=== PATIENT | female | born 1985 | race Caucasian/White ===

== ENCOUNTER 2018-07-31 10:30 | Emergency (ER) | payer OTHER ==
[~2018-07-31 10:30] MED LIST changes: -ACET-1966 PO; -ACET500T68 PO; -ADAL40PE4 SQ; -DICY20TA70 PO; -PRED20TA6 PO
--- NOTE | 2018-07-31 10:33 | ER Report ---
History and Physical Time Seen By MD: 10:32 HPI/ROS CHIEF COMPLAINT: Abdominal pain HISTORY OF PRESENT ILLNESS: Patient is a 32-year-old female with history of ulcerative colitis who is currently on Humira every other week. She follows with a pusher runner in [facility]. Patient recently moved from [place] back to [place] here in March. She presents today with complaint of severe lower quadrant abdominal pain this morning. Her last meal was reported at 9:30 this morning. She states she has anywhere between 5 and 10 small non-formed stools per day sometimes occasionally mixed with blood. She denies any mucus. She also reports bloating and gas. Patient was recently seen by Edwina Weinberg and had some blood work that was done due to the anemia. Blood drawn on 07/25/2018 shows a hemoglobin of 8.4; MCV of 64; a normal total iron binding capacity of 284 (250- 450); normal UIBC of 275 (131-425); a severely low iron level of 9 (27-159); a low iron saturation of 3 (15-55); and a low ferritin level of 13 (15-150); suggesting an iron deficiency anemia. Patient has a history of iron infusions but not has not received them recently. Ports feeling weak and tired over the last few weeks to months. However it is the abdominal pain that brought her into the emergency department today. He shouldn't denies ever having any abdominal surgery. But she did have a infected [place] Patient denies any fevers or chills. She denies any chest pain or cough. REVIEW OF SYSTEMS: Constitutional: No fever, no chills. Generalized weakness Eyes: No discharge. ENT: No sore throat. Cardiovascular: No chest pain, no palpitations. Respiratory: No cough, no shortness of breath. Gastrointestinal: Lower abdominal pain, no nausea or vomiting, 5-10 loose formed stools daily Genitourinary: No hematuria. Musculoskeletal: No back pain. Skin: No rashes. Neurological: No headache. Allergies: Coded Allergies: No Known Drug Allergies (Unverified , 07/31/18) Home Meds Reported Medications Acetaminophen (TYLENOL EXTRA STRENGTH) 500 Mg Tablet, 500 MG PO Q6H PRN for PAIN, TAB 07/31/18 Acetaminophen (TYLENOL) 325 Mg Tablet, 325 MG PO, TAB 07/31/18 Dicyclomine Hcl (DICYCLOMINE HCL) 20 Mg Tablet, 20 MG PO TID PRN for PAIN 07/31/18 Adalimumab (HUMIRA) 40 Mg/0.8 Ml Pen.ij.kit, 40 MG SQ Q2WK 07/31/18 Prednisone (PREDNISONE) 20 Mg Tablet, 40 MG PO QDAY, TAB 07/31/18 Discontinued Reported Medications Hydrocodone Bit/Acetaminophen (Hydrocodone-Apap 5-325 Tab) 1 Each Tablet, 1 EACH PO, 0 Refills 02/15/11 Vits W-Ca,Fe,Fa(<1MG) () 1 Each Tablet, 1 EACH PO DAILY, 0 Refills 02/15/11 Prednisone (Prednisone) 20 Mg Tab, 10 MG PO QDAY, 0 Refills 02/15/11 Past Medical/Surgical History History of ulcerative colitis Hx Smoking: No Hx Substance Use Disorder: No Hx Alcohol Use: No Constitutional Vital Sign - Last 24 Hours 07/31/18 07/31/18 07/31/18 07/31/18 10:35 10:37 11:00 11:30 Temp 98.4 Pulse 103 100 102 Resp 11 B/P (MAP) 124/86 (99) 124/86 118/78 (91) 115/73 (87) Pulse Ox 94 89 85 O2 Delivery Room Air Room Air Room Air 07/31/18 07/31/18 07/31/18 07/31/18 12:00 12:05 12:50 13:05 Pulse 101 102 104 B/P (MAP) 116/74 (88) 113/76 (88) Pulse Ox 96 90 85 O2 Delivery Room Air 07/31/18 07/31/18 07/31/18 07/31/18 13:10 13:27 13:40 13:45 Pulse ??? 98 B/P (MAP) 110/75 (87) 115/80 (92) Pulse Ox 92 O2 Delivery Room Air 07/31/18 07/31/18 07/31/18 07/31/18 14:10 14:35 14:40 15:10 Pulse 103 104 107 106 Pulse Ox 88 87 90 O2 Delivery Room Air Room Air Room Air 07/31/18 15:13 Temp 98.9 B/P (MAP) 116/84 (95) Physical Exam General/Constitutional: Patient is awake, alert, somewhat pale and thin. No acute respiratory distress Head: Normocephalic and atraumatic. Eyes: Conjunctival clear without pallor, Pupils are equal and reactive to light. Extraocular muscles are intact and symmetrical. Sclera are clear and anicteric. Ears:External canals are clear. Tympanic membranes are clear with normal landmarks and light reflex. Nares: No rhinorrhea or bleeding. Turbinates are pink and moist. Oropharyngeal: Mucous membranes are moist. There is no pharyngeal erythema or exudate. There are no palatal petechiae. Uvula is midline and symmetrical. Neck: Supple, no adenopathy. Cardiovascular: Heart is regular rate and rhythm without audible murmurs, rubs or gallops. Pulmonary: Lungs are clear to auscultation bilaterally. There are no wheezes, rales, or rhonchi. Chest rise is symmetrical Abdomen: Soft, nontender, no guarding or peritoneal signs. Extremities: No gross deformities, No peripheral cyanosis. Able to move all 4 extremities. Neuro: Alert and oriented X3, Skin: No rashes, skin is warm dry and well perfused. Medical Decision Making Data Points Result Diagram: 07/31/18 1123 07/31/18 1123 Laboratory Hematology Test 07/31/18 10:39 07/31/18 11:23 07/31/18 11:47 07/31/18 15:24 Lab Scanned Report Emergency Blood Red Blood Count 4.21 M/uL (4.17-5.56) Mean Corpuscular Volume 62.3 fL (80.0-96.0) Mean Corpuscular Hemoglobin 18.4 pg (26.0-33.0) Mean Corpuscular Hemoglobin Concent 29.6 g/dL (32.0-36.0) Red Cell Distribution Width 17.7 % (11.5-14.5) Mean Platelet Volume 6.0 fL (7.2-11.1) Neutrophils (%) (Auto) 67.9 % (39.4-72.5) Lymphocytes (%) (Auto) 19.5 % (17.6-49.6) Monocytes (%) (Auto) 10.6 % (4.1-12.4) Eosinophils (%) (Auto) 1.4 % (0.4-6.7) Basophils (%) (Auto) 0.6 % (0.3-1.4) Nucleated RBC Relative Count (auto) 0.0 /100WBC Neutrophils # (Auto) 5.4 K/uL (2.0-7.4) Lymphocytes # (Auto) 1.6 K/uL (1.3-3.6) Monocytes # (Auto) 0.8 K/uL (0.3-1.0) Eosinophils # (Auto) 0.1 K/uL (0.0-0.5) Basophils # (Auto) 0.0 K/uL (0.0-0.1) Nucleated RBC Absolute Count (auto) 0.00 K/uL Peripheral Blood Smear Yes Y/N Absolute Reticulocyte Count 0.0527 10^6/uL Percent Reticulocyte Count 1.12 % Corrected Reticulocyte % 0.78 % Haptoglobin 430 mg/dL (30-200) Prothrombin Time 13.4 seconds (12.0-14.4) Prothromb Time International Ratio 1.02 Activated Partial Thromboplast Time 32 seconds (23-35) Sodium Level 138 mmol/L (137-145) Potassium Level 3.3 mmol/L (3.5-5.0) Chloride Level 101 mmol/L (98-107) Carbon Dioxide Level 30 mmol/L (22-31) Blood Urea Nitrogen 13 mg/dl (7-18) Creatinine 0.60 mg/dl (0.52-1.04) Glomerular Filtration Rate Calc > 60.0 Random Glucose 104 mg/dl (75-110) Calcium Level 8.7 mg/dl (8.4-10.2) Total Bilirubin 0.2 mg/dl (0.2-1.3) Aspartate Amino Transf (AST/SGOT) 16 U/L (0-35) Alanine Aminotransferase (ALT/SGPT) 17 U/L (0-56) Alkaline Phosphatase 121 U/L (0-126) Lactate Dehydrogenase 268 U/L (0-590) Total Protein 7.8 g/dl (6.3-8.2) Albumin 3.3 g/dl (3.5-5.0) Lipase 52 U/L (23-300) Vitamin B12 Level 647 pg/mL (180-914) Folate 13.7 ng/mL (>=5.9) Human Chorionic Gonadotropin, Qual Negative (NEGATIVE) Helicobacter pylori IgG Antibody Negative (NEGATIVE) Stool Occult Blood (IFOB) Positive (NEGATIVE) Urine Color Yellow Urine Clarity Clear Urine pH 5.0 pH (4.8-9.5) Urine Specific Bryan S3 Urine Protein Negative mg/dL (NEGATIVE) Urine Glucose (UA) Negative mg/dL (NEGATIVE) Urine Ketones Negative mg/dL (NEGATIVE) Urine Blood Moderate (NEGATIVE) Urine Nitrite Negative (NEGATIVE) Urine Bilirubin Negative (NEGATIVE) Urine Urobilinogen Negative mg/dL (0.2-1.9) Urine Leukocyte Esterase Negative (NEGATIVE) Urine RBC 9 /HPF (0-2/HPF) Urine WBC 1 /HPF (0-5/HPF) Urine Squamous Epithelial Cells Many /LPF (</=FEW) Urine Bacteria Negative /HPF (NONE-FEW) Urine Mucus Few /HPF (NONE-FEW) Chemistry Test 07/31/18 10:39 07/31/18 11:23 07/31/18 11:47 07/31/18 15:24 Lab Scanned Report Emergency Blood White Blood Count 8.0 k/uL (4.5-11.0) Red Blood Count 4.21 M/uL (4.17-5.56) Hemoglobin 7.8 g/dL (12.0-16.0) Hematocrit 29.4 % (34.0-47.0) Mean Corpuscular Volume 62.3 fL (80.0-96.0) Mean Corpuscular Hemoglobin 18.4 pg (26.0-33.0) Mean Corpuscular Hemoglobin Concent 29.6 g/dL (32.0-36.0) Red Cell Distribution Width 17.7 % (11.5-14.5) Platelet Count 695 K/uL (150-450) Mean Platelet Volume 6.0 fL (7.2-11.1) Neutrophils (%) (Auto) 67.9 % (39.4-72.5) Lymphocytes (%) (Auto) 19.5 % (17.6-49.6) Monocytes (%) (Auto) 10.6 % (4.1-12.4) Eosinophils (%) (Auto) 1.4 % (0.4-6.7) Basophils (%) (Auto) 0.6 % (0.3-1.4) Nucleated RBC Relative Count (auto) 0.0 /100WBC Neutrophils # (Auto) 5.4 K/uL (2.0-7.4) Lymphocytes # (Auto) 1.6 K/uL (1.3-3.6) Monocytes # (Auto) 0.8 K/uL (0.3-1.0) Eosinophils # (Auto) 0.1 K/uL (0.0-0.5) Basophils # (Auto) 0.0 K/uL (0.0-0.1) Nucleated RBC Absolute Count (auto) 0.00 K/uL Peripheral Blood Smear Yes Y/N Absolute Reticulocyte Count 0.0527 10^6/uL Percent Reticulocyte Count 1.12 % Corrected Reticulocyte % 0.78 % Haptoglobin 430 mg/dL (30-200) Prothrombin Time 13.4 seconds (12.0-14.4) Prothromb Time International Ratio 1.02 Activated Partial Thromboplast Time 32 seconds (23-35) Glomerular Filtration Rate Calc > 60.0 Calcium Level 8.7 mg/dl (8.4-10.2) Total Bilirubin 0.2 mg/dl (0.2-1.3) Aspartate Amino Transf (AST/SGOT) 16 U/L (0-35) Alanine Aminotransferase (ALT/SGPT) 17 U/L (0-56) Alkaline Phosphatase 121 U/L (0-126) Lactate Dehydrogenase 268 U/L (0-590) Total Protein 7.8 g/dl (6.3-8.2) Albumin 3.3 g/dl (3.5-5.0) Lipase 52 U/L (23-300) Vitamin B12 Level 647 pg/mL (180-914) Folate 13.7 ng/mL (>=5.9) Human Chorionic Gonadotropin, Qual Negative (NEGATIVE) Helicobacter pylori IgG Antibody Negative (NEGATIVE) Stool Occult Blood (IFOB) Positive (NEGATIVE) Urine Color Yellow Urine Clarity Clear Urine pH 5.0 pH (4.8-9.5) Urine Specific Bryan S3 Urine Protein Negative mg/dL (NEGATIVE) Urine Glucose (UA) Negative mg/dL (NEGATIVE) Urine Ketones Negative mg/dL (NEGATIVE) Urine Blood Moderate (NEGATIVE) Urine Nitrite Negative (NEGATIVE) Urine Bilirubin Negative (NEGATIVE) Urine Urobilinogen Negative mg/dL (0.2-1.9) Urine Leukocyte Esterase Negative (NEGATIVE) Urine RBC 9 /HPF (0-2/HPF) Urine WBC 1 /HPF (0-5/HPF) Urine Squamous Epithelial Cells Many /LPF (</=FEW) Urine Bacteria Negative /HPF (NONE-FEW) Urine Mucus Few /HPF (NONE-FEW) Coagulation Test 07/31/18 11:23 Prothrombin Time 13.4 seconds Prothromb Time International Ratio 1.02 Activated Partial Thromboplast Time 32 seconds Urinalysis Test 07/31/18 15:24 Urine Color Yellow Urine Clarity Clear Urine pH 5.0 pH (4.8-9.5) Urine Specific Bryan S3 Urine Protein Negative mg/dL (NEGATIVE) Urine Glucose (UA) Negative mg/dL (NEGATIVE) Urine Ketones Negative mg/dL (NEGATIVE) Urine Blood Moderate (NEGATIVE) Urine Nitrite Negative (NEGATIVE) Urine Bilirubin Negative (NEGATIVE) Urine Urobilinogen Negative mg/dL (0.2-1.9) Urine Leukocyte Esterase Negative (NEGATIVE) Urine RBC 9 /HPF (0-2/HPF) Urine WBC 1 /HPF (0-5/HPF) Urine Squamous Epithelial Cells Many /LPF (</=FEW) Urine Bacteria Negative /HPF (NONE-FEW) Urine Mucus Few /HPF (NONE-FEW) ED Course/Re-evaluation ED Course 07/31/2018 11:23:20 am patient with acute abdominal pain and ulcerative colitis plan at this time will be abdominal workup including CT scan of the abdomen and pelvis. We will give IV fentanyl along with Zofran for pain. We'll also perform additional anemia workup. 07/31/2018 1:05:41 pm and increased pain given 50 mics of IV fentanyl this time. Hemoglobin returns at 7.8. Had discussion with regard to transfusion as patient is symptomatic patient is agreeable at this time. We'll have patient sig n consent forms given a unit of blood. Mother did discuss possibility of an iron transfusion. I did explain that by getting the blood we supersede the issue of iron deficiency anemia immediately as it takes time for blood cells to be built up from iron.. Further explained that we would try to arrange outpatient iron infusions through her primary care provider. 07/31/2018 2:09:04 pm patient with pancolitis I CT scan but also evidence of DVT with moderate clot in the left common internal iliac arteries small amount of clot in the left external iliac artery. I did discuss the case with the on-c all hospitalist Dr. Garcia. He felt that given the clot burden that she would wire a higher level of care. I did discuss this with the patient they would prefer being transferred to [facility] they're able to take the patient. 07/31/2018 2:32:51 pm spoke with the GI attending ; and the hospitalist Dr Ellis: History, physical exam ED course all pertinent lab and imaging studies were reviewed. They both agreed to accept the patient for transport at this time. Family is in agreement. Decision to Disposition Date: Jul 31, 2018 Decision to Disposition Time: 14:33 Depart Departure Latest Vital Signs Vital Signs Date Time Temp Pulse Resp B/P (MAP) Pulse Ox O2 Delivery O2 Flow Rate FiO2 07/31/18 15:13 98.9 116/84 (95) 07/31/18 15:10 106 90 Room Air 07/31/18 10:37 11 Impression: Primary Impression: Arterial thrombosis Additional Impressions: Ulcerative pancolitis IRON DEFICIENCY ANEMIA SECONDARY TO BLOOD LOSS (CHRONIC) Condition: Improved Disposition: XFER TO [facility] (to [facility]) Problem Qualifiers BENNY BUSTILLO MD Jul 31, 2018 10:33
[2018-07-31] MEDS ORDERED: ACET500T68 PO (10:48)
[2018-07-31] MEDS ORDERED: ADAL40PE4 SQ (10:48)
[2018-07-31] MEDS ORDERED: DICY20TA70 PO (10:48)
[2018-07-31] MEDS ORDERED: ACET-1966 PO (10:48)
[2018-07-31] MEDS ORDERED: PRED20TA6 PO (10:48)
[2018-07-31] MEDS ORDERED: NS(*) 0.9% 1000 ML BAG 1,000 ML IV ONE (11:04)
[2018-07-31] MEDS ORDERED: ONDANSETRON 4 MG/2 ML VIAL IVP ONE (11:05)
[2018-07-31] MEDS ORDERED: fentaNYL CITR 100 MCG/2 ML AMP IVP ONE ×3 (11:05→13:55)
[2018-07-31] MEDS ORDERED: IOPAMIDOL 76% 75 ML INFUS BTL 75 ML ONE (11:24)
[2018-07-31 11:40] LABS: PLATELET COUNT, AUTOMATED 695 K/uL (150-450)
[2018-07-31 11:41] LABS: INR 1.02
[2018-07-31] MEDS ORDERED: NS(*) 0.9% 250 ML BAG 250 ML ONE (13:18)
--- NOTE | 2018-07-31 13:47 | RADIOLOGY IMAGING REPORT ---
FACILITY: [facility] [place] PATIENT NAME: Rika Esteban : 1985 MR: [id number] V: [id number] EXAM DATE: ORDERING PHYSICIAN: BENNY BUSTILLO TECHNOLOGIST: Location: [facility] Patient: Rika Esteban : 1985 Visit/Account:[id number] Date of Sevice: 07/31/2018 ADDENDUM #1 Findings discussed by telephone with Dr. BENNY BUSTILLO on 07/31/2018 1:47 PM. Per discussion, the patient had perineal surgery this summer which involved resection of perianal fis tulas and the areas of linear enhancement in the perianal/ischiorectal fat could therefore represent postoperative scarring. There is a typographical error related to voice recognition software in the first line of the conclus ion. The first line should read "Moderate, acute long segment colitis of the distal transverse, desc ending and sigmoid colon and rectum." Report Dictated By: Kimo Salgado at 07/31/2018 1:47 PM Report E-Signed By: Kimo Salgado at 07/31/2018 1:49 PM ORIGINAL REPORT ABDOMEN/PELVIS WITH CONTRAST COMPARISON: None. HISTORY: hx u/c; ab pain. TECHNIQUE: Axial CT abdomen and pelvis with intravenous contrast. Coronal and sagittal reformats. One of the following dose optimization techniques was utilized in the performance of this exam: aut omated exposure control; adjustment of the mA and/or kV according to patient size; or use of iterativ e reconstruction technique. Specific details can be referenced in the facility's radiology CT exam o perational policy. CONTRAST: 75 mL of IV Isovue-[id number]. FINDINGS: LUNG BASES: Unremarkable. LIVER: Unremarkable. BILIARY: Contracted gallbladder which could be related to recent meal. There is no intra or extrahepatic bile duct dilatation. SPLEEN: Normal. PANCREAS: Unremarkable. No significant mass, ductal dilatation or focal atrophy. No evidence of ac essie pancreatitis. ADRENALS: Unremarkable. KIDNEYS: Symmetric enhancement. No hydronephrosis or appreciable stones. No evidence of pyelonephr itis. GI/MESENTERY: There is long segment, continuous moderate wall thickening of the left colon, from dis jesus transverse colon to rectum. The entire transverse colon and left colon have a relatively tubular , ahaustral appearance which is typical of ulcerative colitis. The most significant wall thickening is in the rectum and there is mild perirectal fat stranding. Mesenteric hyperemic changes are noted in the transverse and descending colon mesentery. There is no ascending colon wall thickening. Ther e is no pneumatosis intestinalis, appreciable mass or obstruction. There are somewhat linear tracts of abnormal enhancement in the ischiorectal and perianal fat extendi ng posteriorly bilaterally, which could represent bilateral perianal sinus tracts, series 2 image 129 . No clear communication with the skin to suggest these are fistulous. There is mild adjacent fat s tranding . Each measures about 4 cm AP length. The stomach is unremarkable. Borderline dilated loop of small bowel in right lower quadrant/ileum, w ithout wall thickening or other. This could be incidental. The rest of the small bowel is unremarka ble and there is no clear evidence for obstruction. Appendix is not identified. VASCULAR: No significant atherosclerotic disease or arterial stenosis. Filling defects consistent with moderate volume clot in the left common iliac, internal and external iliac veins. Some of the c lot extends into left internal iliac vein branches. The mesenteric arteries and veins are patent. N o other venous thrombus identified. Portal and hepatic veins are widely patent. LYMPH NODES: Unremarkable. No significantly enlarged lymph nodes. BLADDER: Unremarkable. No visible focal wall thickening, appreciable lesion, or calculus. PELVIC ORGANS: IUD in the uterus, grossly within its expected location within the limitations of ass essment by CT. Normal appearance of the ovaries. PRAVEEN ES: Unremarkable.No acute-appearing fracture or suspicious osseous lesion. OTHER: Negative. IMPRESSION:1. Moderate of acute lung segment colitis of the distal transverse, descending and sigmoi d colon and rectum. These findings are most consistent with active ulcerative colitis given the hist ory. No evidence of perforation or intraperitoneal abscess. 2. Abnormal linear ischiorectal and perianal enhancement which could represent perianal sinus tracts extending into the ischiorectal fat. 3. Moderate amount of clot in the left common and internal iliac arteries, small amount of clot in t he left external iliac artery. Differential considerations include May Thurner syndrome, reactive th rombophlebitis, or hypercoagulable state. 4. Uterine IUD. Report Dictated By: Kimo Salgado at 07/31/2018 1:30 PM Report E-Signed By: Kimo Salgado at 07/31/2018 1:43 PM [id number]
[2018-07-31] MEDS ORDERED: LORazepam 2 MG/ML VIAL IVP ONE (14:55)
[2018-07-31 15:13] VITALS: BP 116/84
== END 2018-07-31 16:01 | disposition short-term general hospital (02) ==
LOC: ER 10:39
DX: I74.9 Embolism and thrombosis of unspecified artery (principal); K51.00 Ulcerative (chronic) pancolitis without complications; D50.0 Iron deficiency anemia secondary to blood loss (chronic)
CPT/HCPCS: 36415; 74177; 81001; 82274; 82607; 82746; 83010; 83615; 83690; 83874; 84703; 85025; 85045; 85610; 85730; 86677; 86850; 86900; 86901; 86920; 96361; 96374; 96375; 96376; 99285; J2060; J2405; J3010; J7030; J7050; P9016; Q9967; 82040; 82247; 82310; 82374; 82435; 82565; 82947; 84075; 84132; 84155; 84295; 84450; 84460; 84520

== ENCOUNTER → 2018-07-31 | Outpatient (CLI) | payer OTHER ==
[~2018-07-31] MED LIST: ACET-1966 PO; ACET500T68 PO; ADAL40PE4 SQ; CLO1 PO; DICY20TA70 PO; HYDR1TAB PO; IBU600 PO; KET10 PO; LOM PO; MES400 PO; NORG1TAB6 PO; PAN40 PO; PRE10 PO; PRE20 PO; PRE5 PO; PRED20TA6 PO; PREN-67 PO; PREN-85 PO; PRO25 PO
== END ==
LOC: AMB 15:41
PROVIDERS: ATTEND Nurse Practitioner
DX: I82.429 Acute embolism and thrombosis of unspecified iliac vein (principal); K51.90 Ulcerative colitis, unspecified, without complications
CPT/HCPCS: A0425; A0426

== ENCOUNTER 2018-11-06 14:45 | Observation (INO) | payer BC, OTHER ==
[2018-11-06] VITALS (8 sets, daily range): BP systolic 94–110; BP diastolic 55–73
[~2018-11-06] VITALS: Ht 162.6 cm; Wt 53.5 kg
[~2018-11-06 14:45] MED LIST changes: +ACET-1966 PO; +ACET500T68 PO; +ADAL40PE4 SQ; +DICY20TA70 PO; +PRED20TA6 PO
[2018-11-06] MEDS ORDERED: NS(*) 0.9% 1000 ML BAG 1,000 ML IV ONE ×2 (15:05→17:20)
--- NOTE | 2018-11-06 15:07 | ER Report ---
History and Physical Time Seen By MD: 14:55 HPI/ROS CHIEF COMPLAINT:. Perianal Abscess HISTORY OF PRESENT ILLNESS: 32-year-old female patient presents to emergency room with complaint of a perianal abscess. Patient states that she has had this in the past, she had have surgery for it in March when she was in [place]. She states that this been going on for the past 2 weeks. She states that it seems to fluctuate in size. She states that today the pain has gotten significantly worse. She states that she's not able to lay on her back because of the pain. She states that she has not been able to wear her normal underpants, stating that she's been wearing boxers. She states that she has not had any fevers, however yesterday she did feel warm and her children admitted that she felt warm. Patient states that she has not taken any medication for this. REVIEW OF SYSTEMS: Respiratory: No cough, no dyspnea. Cardiovascular: No chest pain, no palpitations. Gastrointestinal: No vomiting, no abdominal pain. Musculoskeletal: No back pain. 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 Patient has surgical history of a left anterior cruciate ligament repair, renal abscess drainage. Patient has a family medical history of breast cancer. Reviewed Nurses Notes: Yes Hx Smoking: No Hx Substance Use Disorder: No Hx Alcohol Use: No Constitutional Vital Sign - Last 24 Hours 11/06/18 11/06/18 11/06/18 14:48 16:45 17:30 Temp 98.7 Pulse 112 92 Resp 16 B/P (MAP) 111/70 102/67 (79) 107/76 (86) Pulse Ox 98 O2 Delivery Room Air Physical Exam General Appearance: The patient is alert, has no immediate need for airway protection and no current signs of toxicity. Respiratory: Chest is non tender, lungs are clear to auscultation. Cardiac: regular rate and rhythm Gastrointestinal: Abdomen is soft and non tender, no masses, bowel sounds no rmal. Musculoskeletal: Neck: Neck is supple and non tender. Extremities have full range of motion and are non tender. Skin: No rashes or lesions. Patient does have swelling, erythema to the left b uttock, no areas of fluctuance, however patient is very tender to palpation. DIFFERENTIAL DIAGNOSIS: After history and physical exam differential diagnosis was considered for abscess, cellulitis, fistula. Medical Decision Making Data Points Result Diagram: 11/06/18 1520 11/06/18 1520 Laboratory Hematology Test 11/06/18 15:20 Red Blood Count 4.22 M/uL (4.17-5.56) Mean Corpuscular Volume 64.7 fL (80.0-96.0) Mean Corpuscular Hemoglobin 18.9 pg (26.0-33.0) Mean Corpuscular Hemoglobin Concent 29.3 g/dL (32.0-36.0) Red Cell Distribution Width 17.7 % (11.5-14.5) Mean Platelet Volume 6.4 fL (7.2-11.1) Neutrophils (%) (Auto) % (39.4-72.5) Lymphocytes (%) (Auto) % (17.6-49.6) Monocytes (%) (Auto) % (4.1-12.4) Eosinophils (%) (Auto) % (0.4-6.7) Basophils (%) (Auto) % (0.3-1.4) Nucleated RBC Relative Count (auto) /100WBC Neutrophils # (Auto) K/uL (2.0-7.4) Lymphocytes # (Auto) K/uL (1.3-3.6) Monocytes # (Auto) K/uL (0.3-1.0) Eosinophils # (Auto) K/uL (0.0-0.5) Basophils # (Auto) K/uL (0.0-0.1) Nucleated RBC Absolute Count (auto) K/uL Neutrophils % (Manual) 81 % (39.4-72.5) Band Neutrophils % 2 % Lymphocytes % (Manual) 12 % (17.6-49.6) Monocytes % (Manual) 5 % (4.1-12.4) Eosinophils % (Manual) 0 % (0.4-6.7) Basophils % (Manual) 0 % (0.3-1.4) Platelet Estimate High Hypochromasia 3+ Poikilocytosis 1+ Anisocytosis 1+ Microcytosis 3+ Spherocytes 1+ Target Cells 1+ Tear Drop Cells 1+ Ovalocytes 1+ Sodium Level 134 mmol/L (137-145) Potassium Level 3.6 mmol/L (3.5-5.0) Chloride Level 102 mmol/L (98-107) Carbon Dioxide Level 25 mmol/L (22-31) Blood Urea Nitrogen 10 mg/dl (7-18) Creatinine 1.00 mg/dl (0.52-1.04) Glomerular Filtration Rate Calc > 60.0 Random Glucose 112 mg/dl (75-110) Calcium Level 8.4 mg/dl (8.4-10.2) Total Bilirubin 0.3 mg/dl (0.2-1.3) Aspartate Amino Transf (AST/SGOT) 13 U/L (0-35) Alanine Aminotransferase (ALT/SGPT) 13 U/L (0-56) Alkaline Phosphatase 105 U/L (0-126) Total Protein 7.4 g/dl (6.3-8.2) Albumin 3.6 g/dl (3.5-5.0) Human Chorionic Gonadotropin, Qual Negative (NEGATIVE) Chemistry Test 11/06/18 15:20 White Blood Count 14.2 k/uL (4.5-11.0) Red Blood Count 4.22 M/uL (4.17-5.56) Hemoglobin 8.0 g/dL (12.0-16.0) Hematocrit 27.3 % (34.0-47.0) Mean Corpuscular Volume 64.7 fL (80.0-96.0) Mean Corpuscular Hemoglobin 18.9 pg (26.0-33.0) Mean Corpuscular Hemoglobin Concent 29.3 g/dL (32.0-36.0) Red Cell Distribution Width 17.7 % (11.5-14.5) Platelet Count 853 K/uL (150-450) Mean Platelet Volume 6.4 fL (7.2-11.1) Neutrophils (%) (Auto) % (39.4-72.5) Lymphocytes (%) (Auto) % (17.6-49.6) Monocytes (%) (Auto) % (4.1-12.4) Eosinophils (%) (Auto) % (0.4-6.7) Basophils (%) (Auto) % (0.3-1.4) Nucleated RBC Relative Count (auto) /100WBC Neutrophils # (Auto) K/uL (2.0-7.4) Lymphocytes # (Auto) K/uL (1.3-3.6) Monocytes # (Auto) K/uL (0.3-1.0) Eosinophils # (Auto) K/uL (0.0-0.5) Basophils # (Auto) K/uL (0.0-0.1) Nucleated RBC Absolute Count (auto) K/uL Neutrophils % (Manual) 81 % (39.4-72.5) Band Neutrophils % 2 % Lymphocytes % (Manual) 12 % (17.6-49.6) Monocytes % (Manual) 5 % (4.1-12.4) Eosinophils % (Manual) 0 % (0.4-6.7) Basophils % (Manual) 0 % (0.3-1.4) Platelet Estimate High Hypochromasia 3+ Poikilocytosis 1+ Anisocytosis 1+ Microcytosis 3+ Spherocytes 1+ Target Cells 1+ Tear Drop Cells 1+ Ovalocytes 1+ Glomerular Filtration Rate Calc > 60.0 Calcium Level 8.4 mg/dl (8.4-10.2) Total Bilirubin 0.3 mg/dl (0.2-1.3) Aspartate Amino Transf (AST/SGOT) 13 U/L (0-35) Alanine Aminotransferase (ALT/SGPT) 13 U/L (0-56) Alkaline Phosphatase 105 U/L (0-126) Total Protein 7.4 g/dl (6.3-8.2) Albumin 3.6 g/dl (3.5-5.0) Human Chorionic Gonadotropin, Qual Negative (NEGATIVE) EKG/Imaging Imaging CT PELVIS W/CON HISTORY: Swelling and erythema at the left buttock. Ulcerative colitis. ADDITIONAL HISTORY: None. TECHNIQUE: Axial CT images were obtained through the pelvis with intravenous contrast. One of the following dose optimization techniques was utilized in the performance of this exam: automated exposure control; adjustment of the mA and/or kv according to patient size; or use of iterative reconstruction te chnique. Specific details can be referenced in the facility's radiology CT exam operational policy. CONTRAST: 85 mL of Isovue-370 COMPARISON: CT abdomen/pelvis with contrast 07/31/2018. FINDINGS: Pelvic genitourinary: IUD noted. Bowel/peritoneum/mesentery: Chronic thickening of the descending/sigmoid colon and rectum consistent with ulcerative colitis. There are 2 new left perianal fluid collection extending along the left gluteal fold consistent with abscess with the more cephalad component measuring 2.5 x 1.3 x 1.9 cm and the more inferior collection measuring 3.9 x 1.8 x 2.7 cm and contains several foci of gas. There are foci of gas extending from the more proximal fluid collection toward the anal canal. Moderate stranding of the adjacent fat Vessels: Interval stenting of the left common iliac vein with resolution of prior thrombus. Trace amount residual thrombus within left internal iliac venous branches although markedly improved. Lymph nodes: Several nonenlarged perirectal lymph nodes. Bones/body wall: See above Other findings: None significant IMPRESSION: 1. Chronic thickening of the descending/sigmoid colon and rectum consistent with ulcerative colitis. There are 2 new left perianal fluid collections which likely connect measuring up to 3.9 cm. Foci of gas extend towards the anal canal, concerning for fistula. 2. Interval stenting of the left common iliac vein with resolution of prior thrombus. Prior thrombus within the left internal iliac venous system has markedly improved. Report Dictated By: Dionisio Noble MD at 11/06/2018 4:22 PM Report E-Signed By: Dionisio Noble MD at 11/06/2018 4:31 PM ED Course/Re-evaluation ED Course Patient was admitted to exam room, history and physical were obtained. Differential diagnoses were considered. On examination lungs are clear, heart is regular, abdomen is soft and nontender. Evaluation of her rectum shows that the left buttock is very erythematous, tender to touch. To truly evaluate the depth of the abscess I opted to do a CT scan of the pelvis. A CBC, CMP were obtained. Patient did have a white count of 14,000 with a left shift, 82% neutrophils. CMP was unremarkable. CT scan did show a large perianal abscess with possible fistula to the rectum with air noted in the abscess. I discussed the findings with Dr. Toscano, general surgeon. He felt the patient likely needed to have surgery to open up and drained the abscess. He asked that patient be admitted and then he would take care of her this evening. Patient was kept nothing by mouth at that time. I discussed this with the patient who verbalized understanding and agreement with plan. Decision to Disposition Date: Nov 06, 2018 Decision to Disposition Time: 16:45 Depart Departure Latest Vital Signs Vital Signs Date Time Temp Pulse Resp B/P (MAP) Pulse Ox O2 Delivery O2 Flow Rate FiO2 11/06/18 17:30 107/76 (86) 11/06/18 16:45 92 11/06/18 14:48 98.7 16 98 Room Air Impression: Primary Impression: Perirectal abscess Condition: Condition Unchanged Disposition: Admitted from ER Referrals: LINDA [facility] SUPERVISOR-BC, ONC (PCP) MAXINE PENN Nov 06, 2018 15:07
[2018-11-06] MEDS ORDERED: MORPHINE 4 MG/ML SDV IVP ONE (15:40)
[2018-11-06] MEDS ORDERED: IOPAMIDOL 61% 100 ML INFUS BTL 100 ML ONE (15:41)
[2018-11-06 15:54] LABS: PLATELET COUNT, AUTOMATED 853 K/uL (150-450)
--- NOTE | 2018-11-06 16:38 | RADIOLOGY IMAGING REPORT ---
FACILITY: [facility] PATIENT NAME: Rika Esteban : 1985 MR: [id number] V: [id number] EXAM DATE: ORDERING PHYSICIAN: MAXINE PENN TECHNOLOGIST: Location: [facility] [place] Patient: Rika Esteban : 1985 Visit/Account:[id number] Date of Sevice: 11/06/2018 CT PELVIS W/CON HISTORY: Swelling and erythema at the left buttock. Ulcerative colitis. ADDITIONAL HISTORY: None. TECHNIQUE: Axial CT images were obtained through the pelvis with intravenous contrast. One of the fol lowing dose optimization techniques was utilized in the performance of this exam: automated exposure control; adjustment of the mA and/or kv according to patient size; or use of iterative reconstruction technique. Specific details can be referenced in the facility's radiology CT exam operational policy . CONTRAST: 85 mL of Isovue-370 COMPARISON: CT abdomen/pelvis with contrast 07/31/2018. FINDINGS: Pelvic genitourinary: IUD noted. Bowel/peritoneum/mesentery: Chronic thickening of the descending/sigmoid colon and rectum consistent with ulcerative colitis. There are 2 new left perianal fluid collection extending along the left gl uteal fold consistent with abscess with the more cephalad component measuring 2.5 x 1.3 x 1.9 cm and the more inferior collection measuring 3.9 x 1.8 x 2.7 cm and contains several foci of gas. There ar e foci of gas extending from the more proximal fluid collection toward the anal canal. Moderate stra nding of the adjacent fat Vessels: Interval stenting of the left common iliac vein with resolution of prior thrombus. Trace a mount residual thrombus within left internal iliac venous branches although markedly improved. Lymph nodes: Several nonenlarged perirectal lymph nodes. Bones/body wall: See above Other findings: None significant IMPRESSION: 1. Chronic thickening of the descending/sigmoid colon and rectum consistent with ulcerative colitis. There are 2 new left perianal fluid collections which likely connect measuring up to 3.9 cm. Foci of gas extend towards the anal canal, concerning for fistula. 2. Interval stenting of the left common iliac vein with resolution of prior thrombus. Prior thrombu s within the left internal iliac venous system has markedly improved. Report Dictated By: Dionisio Noble MD at 11/06/2018 4:22 PM Report E-Signed By: Dionisio Noble MD at 11/06/2018 4:31 PM WSN:HARSHAL-MONIQUE
[2018-11-06] MEDS ORDERED: LORazepam 2 MG/ML VIAL IVP ONE (16:40)
[2018-11-06] MEDS ORDERED: PIPERACILLIN/TAZO* 4.5 GM VIAL 4.5 GM in NS(*) 0.9% 100 ML ADDVANT BAG 100 ML IVPB ONE (17:20)
[2018-11-06] MEDS ORDERED: FAMOTIDINE 20 MG/50 ML PREMIX IVPB ONE (18:10)
[2018-11-06] MEDS ORDERED: NORMOSOL R SOLN(*) 1000 ML BAG 1,000 ML IV PRN (18:10)
[2018-11-06] MEDS ORDERED: MIDAZOLAM 2 MG/2 ML VIAL IVP PRN (18:10)
--- NOTE | 2018-11-06 18:30 | Gen Surgery History & Physical ---
History of Present Illness Chief Complaint Perianal pain History of Present Illness 32-year-old female with ulcerative colitis diagnosed 9 years ago presents with pain around her perianal region. She's also been having fevers and chills. No d rainage. She is on Humira for ulcerative colitis. She confirms that she has been evaluated and routinely sees a conference services director in the reaffirm that her diagnosis is ulcerative colitis and not Crohn's disease. She did have a complex perirectal abscess drained in [facility] 7 months ago. It seemed to heal without problems but then 2-3 weeks ago she started experiencing increasing pain. She has had no other perianal or rectal procedures prior to last summer other than colonoscopy. She denies any fecal incontinence. 2-1/2 months ago she did experience a left iliac arterial thrombosis treated with stenting and is currently on both Eliquis and Plavix. History Problems: (1) Ulcerative pancolitis Status: Chronic (2) Arterial thrombosis Status: Chronic Home Meds Reported Medications Acetaminophen (TYLENOL EXTRA STRENGTH) 500 Mg Tablet, 500 MG PO Q6H PRN for PAIN, TAB 07/31/18 Acetaminophen (TYLENOL) 325 Mg Tablet, 325 MG PO, TAB 07/31/18 Dicyclomine Hcl (DICYCLOMINE HCL) 20 Mg Tablet, 20 MG PO TID PRN for PAIN 07/31/18 Adalimumab (HUMIRA) 40 Mg/0.8 Ml Pen.ij.kit, 40 MG SQ Q2WK 07/31/18 Prednisone (PREDNISONE) 20 Mg Tablet, 40 MG PO QDAY, TAB 07/31/18 Allergies: Coded Allergies: No Known Drug Allergies (Unverified , 07/31/18) Review of Systems All Systems Reviewed/Normal: Yes, Except as Noted Constitutional: Fever, Chills Exam General Appearance: Alert, Awake, No Acute Distress, Afebrile Neuro: No Gross deficits Eyes: PERRLA GI: Abd Soft and Non-Tender, Other (I have reviewed the CT scan and can see the large perirectal abscess. I did not perform a digital rectal exam as I will be performing a digital rectal and anal exam under anesthesia.) Extremities: Warm, Perfused Psych: Alert & Oriented X3, Appropriate Mood & Affect Medical Decision Making Data Points Result Diagram: 11/06/18 1520 11/06/18 1520 Assessment and Plan Problems: (1) Perirectal abscess Status: Acute Assessment & Plan: 11/06/18: We'll admit the patient and start IV antibiotics and IV fluids. We'll proceed to surgery tonight for incision and drainage of the perirectal abscess. The CT raises the possibility of a fistulous tract to the anal canal and I will briefly look at this however she is on 2 blood thinners and so we'll try to minimize surgery to drain the infection and I have explained to her that there is a risk of developing a chronic fistula tract but we'll need to address this in the future if this develops when I can get her off of her anticoagulation before surgery if the fistula tract is not easily detected and addressed during today's surgery. I have explained the surgery to her in great detail as well as the alternatives, risks, and expected recovery. She should expect to be in the hospital at least overnight but possibly a couple of days until her vital signs normalize, she becomes afebrile, and her white blood cell count becomes normal. She seems to understand this discussion and her questions have been answered. She would like to proceed with this plan including incision and drainage of the perirectal abscess. (2) Ulcerative pancolitis Status: Chronic (3) Chronic anticoagulation Status: Chronic Assessment & Plan: 11/06/18: We'll need to proceed with surgery as patient is demonstrating signs of early sepsis including tachycardia and high fevers. She is not hypotensive. I feel that it is not in her best interest to wait until anticoagulation is reversed, especially since Plavix is one of her medications which will take 5 days to reverse. We'll need to monitor the drainage site for bleeding intraoperatively and postoperatively. Condition Guarded Time Spent: < 30 min Venous Thromboembolism VTE Risk Physician Assess for VTE Risk: Yes Patient's VTE Risk: Low VTE Diagnostic Test 2 Days Prior to Admit: No Antithrombotics Is Pt On Any Antithrombotics?: No TERE URIOSTEGUI MD Nov 06, 2018 18:30
[2018-11-06] MEDS ORDERED: fentaNYL CITR 100 MCG/2 ML AMP ONE ×4 (18:52→20:06)
[2018-11-06] MEDS ORDERED: PROPOFOL EMUL(*) 10MG/ML 20 ML 20 ML ONE ×2 (19:06→19:09)
[2018-11-06] MEDS ORDERED: LIDOCAINE MPF 1% 5 ML VIAL ONE (19:06)
[2018-11-06] MEDS ORDERED: DEXAMETHASONE SOD 4 MG/ML VIAL ONE (19:51)
[2018-11-06] MEDS ORDERED: ONDANSETRON 4 MG/2 ML VIAL ONE (19:52)
[2018-11-06] MEDS ORDERED: ROPIVACAINE 0.5% 20 ML VIAL ONE (20:07)
[2018-11-06] MEDS ORDERED: NS(*) 0.9% 1000 ML BAG 1,000 ML IV PRN (20:54)
[2018-11-06] MEDS ORDERED: FLUSH 10 ML SYR IVP PRN (20:55)
[2018-11-06] MEDS ORDERED: NALOXONE HCL 0.4 MG/ML VIAL IVP PRN (20:55)
[2018-11-06] MEDS ORDERED: ONDANSETRON 4 MG/2 ML VIAL IVP PRN (20:55)
[2018-11-06] MEDS: FAMOTIDINE 20 MG TAB PO SCH (21:00)
[2018-11-06] MEDS ORDERED: APIX5TAB PO (21:11)
[2018-11-06] MEDS ORDERED: NOR25 PO (21:11)
[2018-11-06] MEDS ORDERED: CLOP75TA43 PO (21:11)
[2018-11-06] MEDS ORDERED: ASPI-1471 PO (21:11)
[2018-11-06] MEDS ORDERED: FOLI20CA2 PO (21:11)
--- NOTE | 2018-11-06 21:15 | Post Operative Progress Note ---
Post Operative Progress Note Date: Nov 06, 2018 Time: 21:03 Surgeon: Dorcas Dictation number: [id number] Anesthesia: LMA by Dr. Desai Pre-Op Diagnosis: Left perirectal abscess Right posterior perirectal fistula Ulcerative colitis Chronic anticoagulation Post-Op Diagnosis: MARCOS Findings: C/W dx Procedure(s): Left perirectal abscess incision and drainage Specimen Removed:(May be N/A): Abscess contents sent for aerobic and anaerobic cultures Complications: None Fluids: See anesthesia record Estimated Blood Loss: Minimal Date OP Note Dictated: Nov 06, 2018 Time OP Note Dictated: 21:05 TERE URIOSTEGUI MD Nov 06, 2018 21:15
[2018-11-06] MEDS ORDERED: DICYCLOMINE HCL 10 MG CAP PO PRN (23:00)
[2018-11-06] MEDS: MORPHINE 2 MG/ML SYR IVP PRN (23:23)
--- NOTE | 2018-11-06 23:25 | OPERATIVE REPORT 1 ---
EVENT DATE: November 06, 2018 SURGEON: Jeffy Toscano MD ANESTHESIOLOGIST: Inderjit Desai MD ANESTHESIA: LMA. PREOPERATIVE DIAGNOSES 1. Left perirectal abscess. 2. Perirectal fistula. 3. Ulcerative colitis. 4. Chronic anticoagulation. POSTOPERATIVE DIAGNOSES 1. Left perirectal abscess. 2. Right posterior perirectal fistula. 3. Ulcerative colitis. 4. Chronic anticoagulation. PROCEDURES PERFORMED 1. Anal exam under anesthesia. 2. Incision and drainage of a left perirectal abscess. COMPLICATIONS None. CONDITION Stable. BLOOD LOSS Minimal. FINDINGS This patient had a large left perirectal abscess, and she had a fistula in the right posterior quadrant tracking to the posterior midline from her previous incision and drainage by the colorectal surgeon in [place] approximately eight months ago. She also had severe perianal skin tags and chronic inflammation. We also observed incontinence of liquid stool on the table after the patient was placed under anesthesia, although she denied fecal incontinence preoperatively. SPECIMENS I sent contents of the abscess for aerobic and anaerobic cultures. INDICATIONS This is a 32-year-old female who was diagnosed with ulcerative colitis nine years ago. She is apparently under the care of gastroenterologists down in [place], [place], and she sees them regularly. She is on Humira chronically for this. In spite of this, she has persistent daily frequent watery stools, greater than six a day. Last summer, she was in [place] visiting her father when she developed a perirectal abscess and was evaluated by a colorectal surgeon at a tertiary care center there. They performed an incision and drainage with drain placement of her perirectal abscess. She seemed to recover without problems from that until three weeks ago when she started having worsening swelling and pain around her rectal area and in her left buttock. She came into the Emergency Room today, and a CT of her pelvis was performed which confirmed a perirectal abscess on the left, and there looked to be some gas tracking from the right across the posterior midline suspicious for a fistula. I admitted her and started IV antibiotics and consented her for anal exam under anesthesia, perirectal abscess drainage, and possible anal fistulotomy. She does have a history three months ago of an arterial thrombus in her left iliac artery, and this was treated with emergent stenting, and since then, she has been on daily Plavix and Eliquis. Her last doses of these were earlier today. DESCRIPTION OF PROCEDURE Patient was brought to the operating room and placed supine on the operating table. LMA anesthesia was administered, and her legs were placed in candy cane stirrups. Her perianal and perineal skin was prepped and draped in a sterile fashion, using Betadine for the prep. I then inspected the external portion of her anus, and there were circumferential chronic inflammatory skin tags all around her anus. She immediately started to exhibit anal incontinence of liquid green stool from her anus. I pressed on her left buttock where the abscess was and immediately was able to see purulent fluid coming out of both her anus and from an opening on the right posterior quadrant of her anus about 2 cm from the anal verge. I then probed this opening on the right and was able to drop it into a small cavity, and it tracked both medially and it seemed to go across the midline and then also anteriorly. I filled it with saline and was able to see saline coming in through one of the crypts on the posterior midline of her anal canal. I then anesthetized the skin overlying the abscess on the left buttock and removed a quarter size [place] of skin and removed copious amounts of purulent material from this cavity. Probably 15 mL of pus were removed. I did swab the cavity while the pus was still in it and sent it for both aerobic and anaerobic cultures. There was then quite a bit of oozing from the skin, and I controlled this with electrocautery until it was completely hemostatic, and then I flushed out this cavity. I probed it with a hemostat as well as my finger and made sure that there were no tracks that was I missing. I did not appreciate any obvious connection that was large enough to accommodate a hemostat or even a lacrimal duct probe into the rectum or anal canal. However, when I pressed the abscess prior to making my incision, I did see purulent material coming out of the anal canal, so I have to think there is a connection there. Satisfied with the left buttock, I had to make a decision whether to do anything with the fistula on the right buttock. I could clearly see the internal sphincter muscle on the posterior midline that being held taut, and ultimately I elected not to pursue any treatment for the fistula as preop this apparently had not been bothering her. Given her chronic immunomodulation therapy for ulcerative colitis as well as chronic anticoagulation and the fact that it obviously involved at least some sphincter muscle, I elected to leave it alone so as not to result in any incontinence. I will likely send her down to a colorectal surgeon in [place] at the [facility] to discuss her surgical options regarding both her perianal pathology as well as her ulcerative colitis. After all of this was done, I cleaned and dried her perineal area and packed the cavity with a dry 4 x 4 gauze. I then covered her perianal area with dry 4 x 4 gauze and ABD pad. She was then awakened, LMA removed, and she was placed in net underwear. Then, she was transported to the recovery room in stable condition having tolerated the procedure without any apparent problems. POLO
[2018-11-07] VITALS (8 sets, daily range): BP systolic 90–96; BP diastolic 52–64; Ht 162.6 cm; Wt 53.5 kg
[2018-11-07] MEDS: PIPERACILLIN/TAZO*3.375GM VIAL 3.375 GM in NS(*) 0.9% 100 ML ADDVANT BAG 100 ML IVPB SCH ×4 (00:34→17:48)
[2018-11-07 06:01] LABS: PLATELET COUNT, AUTOMATED 662 K/uL (150-450)
--- NOTE | 2018-11-07 07:11 | General Surgery Progress Note ---
Subjective Progress Notes Subjective Feeling much better this morning. Not much pain. Physical Exam Vital Signs Date Time Temp Pulse Resp B/P (MAP) Pulse Ox O2 Delivery O2 Flow Rate FiO2 11/07/18 03:00 97.8 76 90/52 (65) 98 11/07/18 01:00 Nasal Cannula 1.0 11/06/18 21:50 16 Intake and Output 11/07/18 07:00 Intake Total 2800 ml Balance 2800 ml Intake Oral 200 ml IV Total 2600 ml # Voids 2 General Appearance: Alert, Awake, No Acute Distress, Afebrile GI: Other (Dressing with some serosanguinous drainage on it.) Extremities: Warm, Perfused Result Diagram: 11/07/18 04511/07/18453 Assessment and Plan Problems: (1) Perirectal abscess Status: Acute Assessment & Plan: 11/06/18: We'll admit the patient and start IV antibiotics and IV fluids. We'll proceed to surgery tonight for incision and drainage of the perirectal abscess. The CT raises the possibility of a fistulous tract to the anal canal and I will briefly look at this however she is on 2 blood thinners and so we'll try to minimize surgery to drain the infection and I have explained to her that there is a risk of developing a chronic fistula tract but we'll need to address this in the future if this develops when I can get her off of her anticoagulation before surgery if the fistula tract is not easily detected and addressed during today's surgery. I have explained the surgery to her in great detail as well as the alternatives, risks, and expected recovery. She should expect to be in the hospital at least overnight but possibly a couple of days until her vital signs normalize, she becomes afebrile, and her white blood cell count becomes normal. She seems to understand this discussion and her questions have been answered. She would like to proceed with this plan including incision and drainage of the perirectal abscess. 11/07/18: POD#1 s/p perirectal abscess I/D. Doing much better this morning. WBC down to normal, afebrile since surgery. H/H down but no signs of on-going blood loss and not much blood loss during surgery. Will see if she's symptomatic when she's ambulating this morning. Transfuse only if symptomatic. Will change dressing later today and d/c to home if she's able to mobilize without problems. (2) Ulcerative pancolitis Status: Chronic Assessment & Plan: Will ultimately refer to Colorectal surgery in [place] at [facility] to discuss possible total proctocolectomy or at least management of her perianal disease but I believe she'll have continued perianal problems until her UC is better controlled which may only happen after resection, let alone her CRC risk. (3) Chronic anticoagulation Status: Chronic Assessment & Plan: 11/06/18: We'll need to proceed with surgery as patient is demonstrating signs of early sepsis including tachycardia and high fevers. She is not hypotensive. I feel that it is not in her best interest to wait until anticoagulation is reversed, especially since Plavix is one of her medications which will take 5 days to reverse. We'll need to monitor the drainage site for bleeding intraoperatively and postoperatively. (4) Anemia Status: Chronic Assessment & Plan: A little worse after surgery but likely due to hemodilution since not much blood loss during surgery and no signs of continued postop blood loss. Will follow. Condition Stable. Time Spent: < 30 min Exam Sepsis Risk: Sepsis Risk Problem Qualifiers (1) Anemia: Anemia type: unspecified type Qualified Codes: D64.9 - Anemia, unspecified TERE URIOSTEGUI MD Nov 07, 2018 07:11
[2018-11-07] MEDS: FAMOTIDINE 20 MG TAB PO SCH ×2 (09:19→20:17)
[2018-11-07] MEDS: MORPHINE 2 MG/ML SYR IVP PRN ×2 (10:21→17:48)
--- NOTE | 2018-11-07 15:56 | Medical Nutrition Therapy ---
Nutrition Anthropometrics Height (Inches): 64.00 Height (Calculated Centimeters: 162.504882 Weight (Pounds): 118 Weight (Calculated Kilograms): 53.524 Dm Nutrition Score: Adequate Dm Nutrition Risk Score: 19 Dietary Referral Nutrition Risk Factors: Nutrition Risk Comment: Physical Findings Physical Appearance: Skin Appearance Skin Appearance: Edema Edema Location Modifier: Edema Location: Type of Edema: Degree of Edema: Gastrointestinal Symptoms GI Symtoms: Diarrhea Tube Present: Bowel Sounds: Recent Bowel Pattern: Stool Characteristics: Nutritional Diagnosis Nutritional Risk Acuity 2: GI Malabsorption, Abcess/Non-Healing Wound Past Medical History: Hx of Ulcerative Colitis, arterial thrombosis, anemia. Nutritional Acuity: 2-Moderate Nutrition Diagnosis: Altered GI Function Nutrition Etiology: Discomfort post Eating Nutrition Problem/Etiology/Sym: Altered GI function related to discomfort post eating as evidenced by perirectal abscess, and recent ulcerative colitis flare ups. Energy Requirement: 1748 (1.3 AF, 1.1 TEF, MSJ) Protein Requirement: 63.6 (1.2g AA/kg BW) Fluid Requirement: 1325 (25mL/kg of BW) Diet Type: Regular Nutrition Intervention: Cont diet as ordered, Encourage intake, Check glucose Diet Comment To RSA: Recommend low fiber foods for the ulcerative colitis. Nutritional Education Nutrition Education Topic: Other Learning Readiness: Eager, Interested Teaching Methods: Discussion, Handout Response to Teaching: Verbalize understanding Teaching Recipient: Patient Nutrition Counseling: Itern and pt talked about the pt's usual diet. Pt stated she avoids lactose and some times high fiber foods. Pt expressed interest to record label intern about UC diet/information. Itern discussed eating smaller more frequent meals per day, low fiber, and keeping a food journal. Itern presented pt with handout on food ideas and tips for UC. Pt asked about FODMAP diet, RD and record label intern discussed diet with pt and pt showed little interest in information but possibly interested at a later time. Pt expressed concern that stress affects her UC flare ups. Pt shared she is experiencing stress at home due to a divorce. RD and record label intern discussed with pt ways to eliminate stress such as exercise, yoga, walking, etc. - Nutrition Monitoring & Eval Nutrition Goals: Eat 50-100% Meal, Drink > 1500 cc/day RD Patient Assessment Time: [address] Assessment Type: RD Assessment Patient Nutrition Acuity: 2-Moderate Follow Up Date: Nov 11, 2018 Nutritional Comment: Pt admitted for perirectal absess surgery, ulcerative colitis, and chronic anticoagulation.Pt hx of anemia, arterial thrombosis, and ulcerative colitis. Pt currently has elevated random bloog glucose and calciu levels. No current pt food intake documentation. RD read and approved. -RUPALI HERCULES Nov 07, 2018 15:56
[2018-11-07] MEDS ORDERED: FOLI0.4T56 PO (16:05)
[2018-11-07] MEDS ORDERED: BIOT5CAP PO (16:05)
[2018-11-07] MEDS ORDERED: NOR10 PO (16:05)
[2018-11-08 01:18] VITALS: BP 94/59
[2018-11-08 05:03] VITALS: BP 94/57
[2018-11-08 06:25] LABS: PLATELET COUNT, AUTOMATED 614 K/uL (150-450)
[2018-11-08 06:59] VITALS: BP 99/57
[2018-11-08] MEDS ORDERED: PER PO (07:35)
--- NOTE | 2018-11-08 07:39 | Short(Outpt) Discharge Summary ---
Discharge Summary Reason for Hosp/Final Diag: (1) Perirectal abscess Status: Acute Hospital Course & Plan: 11/06/18: We'll admit the patient and start IV antibiotics and IV fluids. We'll proceed to surgery tonight for incision and drainage of the perirectal abscess. The CT raises the possibility of a fistulous tract to the anal canal and I will briefly look at this however she is on 2 blood thinners and so we'll try to minimize surgery to drain the infection and I have explained to her that there is a risk of developing a chronic fistula tract but we'll need to address this in the future if this develops when I can get her off of her anticoagulation before surgery if the fistula tract is not easily detected and addressed during today's surgery. I have explained the surgery to her in great detail as well as the alternatives, risks, and expected recovery. She should expect to be in the hospital at least overnight but possibly a couple of days until her vital signs normalize, she becomes afebrile, and her white blood cell count becomes normal. She seems to understand this discussion and her questions have been answered. She would like to proceed with this plan including incision and drainage of the perirectal abscess. 11/07/18: POD#1 s/p perirectal abscess I/D. Doing much better this morning. WBC down to normal, afebrile since surgery. H/H down but no signs of on-going blood loss and not much blood loss during surgery. Will see if she's symptomatic when she's ambulating this morning. Transfuse only if symptomatic. Will change dressing later today and d/c to home if she's able to mobilize without problems. 11/08/18: POD#2. Doing well. H/H down a little due to equilibration, no signs of bleeding. WBC normal, afebrile, VSS. Pt with mild discomfort at surgical site but no other complaints and no symptoms due to her anemia. Ambulating without problems. Will d/c to home today and will f/u with me in office next week. (2) Ulcerative pancolitis Status: Chronic Hospital Course & Plan: Will ultimately refer to Colorectal surgery in [place] at [facility] to discuss possible total proctocolectomy or at least management of her perianal disease but I believe she'll have continued perianal problems until her UC is better controlled which may only happen after resection, let alone her CRC risk. (3) Chronic anticoagulation Status: Chronic Hospital Course & Plan: 11/06/18: We'll need to proceed with surgery as patient is demonstrating signs of early sepsis including tachycardia and high fevers. She is not hypotensive. I feel that it is not in her best interest to wait until anticoagulation is reversed, especially since Plavix is one of her medications which will take 5 days to reverse. We'll need to monitor the drainage site for bleeding intraoperatively and postoperatively. (4) Anemia Status: Chronic Hospital Course & Plan: A little worse after surgery but likely due to hemodilution since not much blood loss during surgery and no signs of continued postop blood loss. Will follow. Departure Discharge to: Home, Self Care Discharge Instructions Home Meds Active Scripts Oxycodone/Acetaminophen (OXYCODONE/ACETAMINOPHEN 5MG/325 MG) 5 Mg/325 Mg Tab, 1 TAB PO Q4H PRN for MODERATE PAIN, #20 TAB 0 Refills Prov:TERE URIOSTEGUI MD 11/08/18 Reported Medications Biotin (BIOTIN) 5 Mg Capsule, 5 MG PO QDAY, CAPSULE 11/07/18 Nortriptyline Hcl (NORTRIPTYLINE HCL) 10 Mg Cap, 10 MG PO HS, CAP 35 MG PO HS 11/07/18 Folic Acid (FOLIC ACID) 0.4 Mg Tablet, 0.4 MG PO DAILY 11/07/18 Nortriptyline Hcl (NORTRIPTYLINE HCL) 25 Mg Cap, 35 MG PO HS, CAP 11/06/18 Apixaban (ELIQUIS) 5 Mg Tablet, 5 MG PO BID 11/06/18 Aspirin (ASPIR 81) 81 Mg Tablet.dr, 81 MG PO QDAY, TAB 11/06/18 Clopidogrel Bisulfate (PLAVIX) 75 Mg Tablet, 1 TAB PO QDAY, TAB 11/06/18 Dicyclomine Hcl (DICYCLOMINE HCL) 20 Mg Tablet, 20 MG PO TID PRN for PAIN 07/31/18 Adalimumab (HUMIRA) 40 Mg/0.8 Ml Pen.ij.kit, 40 MG SQ qfriday 07/31/18 Discontinued Reported Medications Folic Acid (FOLIC ACID) 20 Mg Capsule, PO DAILY, CAPSULE 11/06/18 Acetaminophen (TYLENOL EXTRA STRENGTH) 500 Mg Tablet, 500 MG PO Q6H PRN for PAIN, TAB 07/31/18 Acetaminophen (TYLENOL) 325 Mg Tablet, 325 MG PO, TAB 07/31/18 Prednisone (PREDNISONE) 20 Mg Tablet, 40 MG PO QDAY, TAB 07/31/18 Follow up Referrals: General Surgery - 11/13/18 @ Surgery, General with TERE URIOSTEGUI MD You have a follow up appointment scheduled with Dr. Uriostegui on 11/13/18, at 11:30am. Diet: Regular Activity: As Tolerated Special Instructions: You may shower or bath as desired. Change the dressing daily. Resume all of your regular medications including plavix and eliquis. Continue iron infusions for anemia. Problem Qualifiers (1) Anemia: Anemia type: unspecified type Qualified Codes: D64.9 - Anemia, unspecified TERE URIOSTEGUI MD Nov 08, 2018 07:39
[2018-11-08] MEDS: FAMOTIDINE 20 MG TAB PO SCH (08:28)
== END 2018-11-08 07:34 | disposition home or self-care (01) ==
LOC: ER 14:49 → OR 17:30 → INTOOBSV 21:50 → MED 21:50
PROVIDERS: ADMIT Surgery; ATTEND Surgery
DX: K61.0 Anal abscess (principal)
CPT/HCPCS: 36415; 46040; 72193; 84703; 85025; 87071; 87073; 87077; 87186; 96361; 96374; 96375; 99284; G0378; J1100; J2001; J2060; J2270; J2405; J2543; J2704; J2795; J3010; J3490; J7030; J7050; Q9967; 82040; 82247; 82310; 82374; 82435; 82565; 82947; 84075; 84132; 84155; 84295; 84450; 84460; 84520

== ENCOUNTER 2019-01-25 13:01 | Inpatient (IN) | payer BC ==
[2018-11-07 13:55] VITALS: Wt 55.1 kg
[~2019-01-25 13:01] MED LIST changes: +APIX5TAB PO; +ASPI-1471 PO; +BIOT5CAP PO; +CLOP75TA43 PO; +FOLI0.4T56 PO; +FOLI20CA2 PO; +NOR10 PO; +NOR25 PO; +PER PO
--- NOTE | 2019-01-25 13:05 | ER Report ---
History and Physical Time Seen By MD: 13:10 [facility]/ROS CHIEF COMPLAINT: Colitis flare HISTORY OF PRESENT ILLNESS: Patient is a 33-year-old female who is here with colitis flare she has a history of ulcerative colitis. States that over the past week or 2 she's been having increased cramping with increased frequencies of stools with some mucus no obvious blood. She is also having very painful tenesmus. This is what prompted her to come to the emergency department. She is currently going through a divorce and feels that her ulcerative colitis flares are related to her stress. She was supposed to take her Humira injection today but did not. She is also been off of her Plavix for the last 3 days. She is taking her aspirin and Eliquis. She feels generally weak and tired all the time. She has a history of blood loss anemia in the past. She denies any fevers or chills. She denies chest pain or shortness of breath. He also states that when the tenesmus is severe she feels nauseous as if she wants to vomit. She was recently seen in December for pilonidal abscess that was drained by Dr. Bustos. Patient also will be following up with gastroenterology down in [place]. She has never had surgery for her ulcerative colitis but has been treated medically with both steroids and Asacol. REVIEW OF SYSTEMS: Constitutional: No fever, no chills. Eyes: No discharge. ENT: No sore throat. Cardiovascular: No chest pain, no palpitations. Respiratory: No cough, no shortness of breath. Gastrointestinal: Abdominal cramping, tenesmus nausea Genitourinary: No hematuria. Musculoskeletal: No back pain. Skin: Pale Neurological: No headache. Allergies: Coded Allergies: No Known Drug Allergies (Unverified , 01/25/19) Home Meds Reported Medications Dicyclomine Hcl (DICYCLOMINE HCL) 10 Mg Capsule, 20 MG PO QHS, CAPSULE 01/25/19 Biotin (BIOTIN) 5 Mg Capsule, 5 MG PO QDAY, CAPSULE 11/07/18 Folic Acid (FOLIC ACID) 0.4 Mg Tablet, 0.4 MG PO DAILY 11/07/18 Apixaban (ELIQUIS) 5 Mg Tablet, 5 MG PO BID 11/06/18 Aspirin (ASPIR 81) 81 Mg Tablet., 81 MG PO QDAY, TAB 11/06/18 Clopidogrel Bisulfate (PLAVIX) 75 Mg Tablet, 1 TAB PO QDAY, TAB 11/06/18 Adalimumab (HUMIRA) 40 Mg/0.8 Ml Pen.ij.kit, 40 MG SQ qfriday 07/31/18 Discontinued Scripts Oxycodone/Acetaminophen (OXYCODONE/ACETAMINOPHEN 5MG/325 MG) 5 Mg/325 Mg Tab, 1 TAB PO Q4H PRN for MODERATE PAIN, #20 TAB 0 Refills Prov:TERE URIOSTEGUI MD 11/08/18 Past Medical/Surgical History Patient has a past medical history of seizure, 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 Patient has surgical history of a left anterior cruciate ligament repair, renal abscess drainage. Hx Smoking: No Smoking Status: Never Smoker Hx Substance Use Disorder: No Hx Alcohol Use: No Constitutional Vital Sign - Last 24 Hours 01/25/19 01/25/19 01/25/19 01/25/19 13:05 13:30 13:45 14:00 Temp 99.8 Pulse 110 112 106 Resp 18 B/P (MAP) 109/64 111/65 (80) Pulse Ox 98 92 89 98 O2 Delivery Room Air 01/25/19 01/25/19 01/25/19 01/25/19 14:00 14:15 14:30 14:38 Pulse 105 ??? B/P (MAP) ???/??? (1665) 100/61 (74) Pulse Ox 95 O2 Flow Rate 2.0 01/25/19 01/25/19 01/25/19 01/25/19 14:45 15:00 15:15 15:20 Pulse 102 105 101 105 B/P (MAP) 97/55 (69) Pulse Ox 99 99 94 99 01/25/19 01/25/19 01/25/19 01/25/19 15:25 15:26 15:31 15:31 Pulse 100 98 98 B/P (MAP) 103/65 (78) Pulse Ox 98 98 98 01/25/19 01/25/19 01/25/19 01/25/19 15:36 15:36 15:41 15:41 Pulse 97 97 93 93 Pulse Ox 98 98 98 98 01/25/19 01/25/19 01/25/193/19 15:46 15:46 15:51 15:56 Pulse 93 93 98 101 Pulse Ox 99 99 98 94 01/25/19 01/25/19 01/25/19 01/25/19 16:00 16:01 16:06 16:11 Pulse 186 94 90 B/P (MAP) 105/66 (79) Pulse Ox 97 96 97 01/25/19 01/25/19 01/25/19 01/25/19 16:16 16:21 16:26 16:35 Pulse 90 91 89 B/P (MAP) 103/67 (79) Pulse Ox 97 97 96 01/25/19 01/25/19 01/25/19 16:36 16:41 16:46 Pulse 91 90 91 Pulse Ox 96 98 99 Physical Exam General Appearance: The patient is alert, has no immediate need for airway protection and no signs of toxicity. Patient is extremely pale and gaunt looking. Eyes: Pupils equal and round; pale conjunctiva ENT, Mouth: Mucous membranes are moist. Respiratory: There are no retractions, lungs are clear to auscultation. Cardiovascular: Regular rate and rhythm. Gastrointestinal: Abdomen is soft and non tender, no masses, bowel sounds normal. Rectal: no gross blood Neurological: awake, alert Skin: Warm and dry, no rashes. Musculoskeletal: Neck is supple non tender. Extremities are nontender, nonswollen and have full range of motion. Medical Decision Making Data Points Result Diagram: 01/28/19 0509 01/28/19 0509 Laboratory Hematology Test 01/25/19 13:40 01/25/19 14:48 01/25/19 16:47 Platelet Estimate High Total Bilirubin 0.2 mg/dl (0.2-1.3) Aspartate Amino Transf (AST/SGOT) 19 U/L (0-35) Alanine Aminotransferase (ALT/SGPT) 17 U/L (0-56) Alkaline Phosphatase 98 U/L (0-126) Total Protein 7.0 g/dl (6.3-8.2) Albumin 3.2 g/dl (3.5-5.0) Amylase Level 72 U/L (0-110) Lipase 33 U/L (23-300) Human Chorionic Gonadotropin, Qual Negative (NEGATIVE) Stool Occult Blood (IFOB) Positive (NEGATIVE) Lab Scanned Report Emergency Blood Chemistry Test 01/25/19 13:40 01/25/19 14:48 01/25/19 16:47 Platelet Estimate High Total Bilirubin 0.2 mg/dl (0.2-1.3) Aspartate Amino Transf (AST/SGOT) 19 U/L (0-35) Alanine Aminotransferase (ALT/SGPT) 17 U/L (0-56) Alkaline Phosphatase 98 U/L (0-126) Total Protein 7.0 g/dl (6.3-8.2) Albumin 3.2 g/dl (3.5-5.0) Amylase Level 72 U/L (0-110) Lipase 33 U/L (23-300) Human Chorionic Gonadotropin, Qual Negative (NEGATIVE) Stool Occult Blood (IFOB) Positive (NEGATIVE) Lab Scanned Report Emergency Blood EKG/Imaging Imaging FACILITY: [facility] PATIENT NAME: Rika Esteban : 1985 MR: [id number] V: [id number] EXAM DATE: ORDERING PHYSICIAN: BENNY BUSTILLO TECHNOLOGIST: Location: [facility] Patient: Rika Esteban : 1985 Visit/Account:[id number] Date of Sevice: 01/25/2019 CT ABDOMEN PELVIS W/ CON HISTORY: History of ulcerative colitis TECHNIQUE: Following administration of IV contrast contiguous axial images acquired through the abdomen/pelvis. Coronal and sagittal reformatting also per formed.Dose Lowering Technique One of the following dose optimization techniques was utilized in the performance of this exam: Automated exposure control; adjustment of the mA and/or kV according to the patient's size; or use of an iterative reconstruction technique. Specific details can be referenced in the facility's radiology CT exam operational policy. CONTRAST: Five mL Isovue-370 COMPARISON: November 06 2018 and July 31, 2018 FINDINGS: Visualized lung bases: Negative. Hepatobiliary: Negative. Spleen: Negative. Adrenals: Negative. Pancreas: Negative. Kidneys ureters or bladder: Negative. Genitalia: There is an IUD within the uterus GI: There is fairly extensive wall thickening from the rectum through the entire left side of the the colon to mid transverse colon that appears similar to the prior CT. The wall of the right side of the the colon and proximal transverse colon is not significantly thickened. There is extensive inflammatory change in the perirectal fat. There are bilateral perianal sinus tracts present. There are moderately dilated loops of small bowel in the upper abdomen measuring up to 3.4 cm in diameter Vessels/spaces/nodes: There is a vascular stent extending throughout the course of the left common iliac artery. There is no evidence of thrombus within the portal venous system. Again noted are hyperemic changes in the transverse and descending colon mesentery Bones/soft tissues: Incompletely imaged are bilateral breast implants. Additional findings: None pertinent. IMPRESSION: There is fairly extensive wall thickening from the rectum through the entire left side of the colon to the mid transverse colon similar in appearance to the prior CT. Findings are consistent with the history of ulcerative colitis. Extensive inflammatory changes seen in the perirectal fat in addition to development of bilateral perianal sinus tracts.. Hyperemic changes in the transverse and descending colon mesentery again noted There are moderately dilated loops of small bowel in the upper abdomen measuring up to 3.4 cm in diameter. This could represent a localized ileus although clinical correlation needed Additional chronic findings as described Report Dictated By: Aurora Peterson MD at 01/25/2019 2:47 PM Report E-Signed By: Aurora Peterson MD at 01/25/2019 3:00 PM WSN:[email or web address] ED Course/Re-evaluation Clinical Indication for ER IV: IV Access ED Course 01/25/2019 2:46:19 pm patient is a 33-year-old female with likely ulcerative colitis flare. I will check CBC CMP type and screen as I feel likely that the patient is anemic. If hemoglobin below 7 we will consider transfusion of blood. I will also perform a scan of the abdomen and pelvis. Decision to Disposition Date: January 25, 2019 Decision to Disposition Time: 15:07 Depart Departure Latest Vital Signs Vital Signs Date Time Temp Pulse Resp B/P (MAP) Pulse Ox O2 Delivery O2 Flow Rate FiO2 01/25/19 16:46 91 99 01/25/19 16:35 103/67 (79) 01/25/19 14:00 2.0 01/25/19 13:05 99.8 18 Room Air Impression: Primary Impression: Anemia Additional Impressions: Chronic anticoagulation Ulcerative colitis, left sided Condition: Improved Disposition: Admitted from ER (to DR Bessie Anderson) Problem Qualifiers Primary Impression: Anemia Anemia type: unspecified type Qualified Codes: D64.9 - Anemia, unspecified Additional Impressions: Ulcerative colitis, left sided Digestive disease complication type: with fistula Qualified Codes: 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
[2019-01-25] MEDS ORDERED: NS(*) 0.9% 1000 ML BAG 1,000 ML IV ONE (13:13)
[2019-01-25] MEDS ORDERED: ONDANSETRON 4 MG/2 ML VIAL IVP ONE (13:15)
[2019-01-25] MEDS ORDERED: fentaNYL CITR 100 MCG/2 ML AMP IVP ONE ×2 (13:15→14:50)
[2019-01-25] MEDS ORDERED: DICY10CA11 PO (13:16)
[2019-01-25] MEDS ORDERED: methylPREDNIS SUCC 125 MG/2ML IVP ONE (13:35)
[2019-01-25] MEDS ORDERED: MESALAMINE 400 MG TABEC PO SCH (13:35)
[2019-01-25] MEDS ORDERED: IOPAMIDOL 76% 150 ML INFUS BTL 150 ML ONE (13:37)
[2019-01-25 14:04] LABS: PLATELET COUNT, AUTOMATED 922 K/uL (150-450)
[2019-01-25] MEDS ORDERED: NS(*) 0.9% 500 ML BAG 500 ML IV ONE (14:50)
--- NOTE | 2019-01-25 15:04 | RADIOLOGY IMAGING REPORT ---
FACILITY: [facility] PATIENT NAME: Rika Esteban : 1985 MR: [id number] V: [id number] EXAM DATE: ORDERING PHYSICIAN: BENNY BUSTILLO TECHNOLOGIST: Location: [facility] Patient: Rika Esteban : 1985 Visit/Account:[id number] Date of Sevice: 01/25/2019 ADDENDUM #1 ADDENDUM: The vascular stent is in the left common iliac vein not artery. Report Dictated By: Aurora Peterson MD at 01/25/2019 3:28 PM Report E-Signed By: Aurora Peterson MD at 01/25/2019 3:[address] ABDOMEN PELVIS W/ CON HISTORY: History of ulcerative colitis TECHNIQUE: Following administration of IV contrast contiguous axial images acquired through the abdom en/pelvis. Coronal and sagittal reformatting also performed.Dose Lowering Technique One of the following dose optimization techniques was utilized in the performance of this exam: Autom ated exposure control; adjustment of the mA and/or kV according to the patient's size; or use of an i terative reconstruction technique. Specific details can be referenced in the facility's radiology C T exam operational policy. CONTRAST: Five mL Isovue-370 COMPARISON: November 06 2018 and July 31, 2018 FINDINGS: Visualized lung bases: Negative. Hepatobiliary: Negative. Spleen: Negative. Adrenals: Negative. Pancreas: Negative. Kidneys ureters or bladder: Negative. Genitalia: There is an IUD within the uterus GI: There is fairly extensive wall thickening from the rectum through the entire left side of the th e colon to mid transverse colon that appears similar to the prior CT. The wall of the right side of the the colon and proximal transverse colon is not significantly thickened. There is extensive infla mmatory change in the perirectal fat. There are bilateral perianal sinus tracts present. There are moderately dilated loops of small bowel in the upper abdomen measuring up to 3.4 cm in diameter Vessels/spaces/nodes: There is a vascular stent extending throughout the course of the left common i liac artery. There is no evidence of thrombus within the portal venous system. Again noted are hype remic changes in the transverse and descending colon mesentery Bones/soft tissues: Incompletely imaged are bilateral breast implants. Additional findings: None pertinent. IMPRESSION: There is fairly extensive wall thickening from the rectum through the entire left side of the colon t o the mid transverse colon similar in appearance to the prior CT. Findings are consistent with the h istory of ulcerative colitis. Extensive inflammatory changes seen in the perirectal fat in addition to development of bilateral perianal sinus tracts.. Hyperemic changes in the transverse and descendi ng colon mesentery again noted There are moderately dilated loops of small bowel in the upper abdomen measuring up to 3.4 cm in diam eter. This could represent a localized ileus although clinical correlation needed Additional chronic findings as described Report Dictated By: Aurora Peterson MD at 01/25/2019 2:47 PM Report E-Signed By: Aurora Peterson MD at 01/25/2019 3:00 PM WSN:[email or web address]
[2019-01-25 17:10] VITALS: BP 104/64
[2019-01-25] MEDS ORDERED: NS(*) 0.9% 250 ML BAG 250 ML ONE (17:46)
[2019-01-25] MEDS ORDERED: ACETAMINOPHEN 325 MG TAB PO PRN (17:50)
[2019-01-25] MEDS ORDERED: FLUSH 10 ML SYR IVP PRN (17:50)
[2019-01-25 18:12] VITALS: BP 101/63
[2019-01-25 18:30] VITALS: BP 104/62
[2019-01-25] MEDS ORDERED: ADALIMUMAB 40 MG/0.8 ML SUBQ SCH ×2 (18:30→21:00)
[2019-01-25] MEDS: APAP/HYDROCODONE 325/5 TAB PO PRN ×2 (18:44→23:23)
[2019-01-25 21:14] VITALS: BP 104/64
[2019-01-25] MEDS: MESALAMINE ENEMA PR SCH (21:16)
[2019-01-25] MEDS: APIXABAN 2.5 MG TABLET PO SCH (21:17)
[2019-01-25] MEDS: HYDROCORTISONE 100 MG/2 ML IVP SCH (21:17)
[2019-01-25] MEDS: MESALAMINE 400 MG TABEC PO SCH (21:17)
--- NOTE | 2019-01-25 21:59 | History & Physical ---
History of Present Illness Chief Complaint tenesmus, weakness History of Present Illness 33F presented with increase in BM frequency, bleeding, weakness. PMHx significant for UC, DVT. Reports increased BM for several weeks, seeing occasional blood in stools, having pain and tenesmus. She is treated with 40mg Humira every week which had improved her symptoms before this exacerbation. CT showed colitis from rectum to transverse colon. Hgb was found to be very low at 5.6. History Problems: (1) Perianal fistula Status: Chronic (2) Ulcerative colitis, left sided Status: Chronic (3) Anemia Status: Chronic Home Meds Reported Medications Dicyclomine Hcl (DICYCLOMINE HCL) 10 Mg Capsule, 20 MG PO QHS, CAPSULE 01/25/19 Biotin (BIOTIN) 5 Mg Capsule, 5 MG PO QDAY, CAPSULE 11/07/18 Folic Acid (FOLIC ACID) 0.4 Mg Tablet, 0.4 MG PO DAILY 11/07/18 Apixaban (ELIQUIS) 5 Mg Tablet, 5 MG PO BID 11/06/18 Aspirin (ASPIR 81) 81 Mg Tablet.dr, 81 MG PO QDAY, TAB 11/06/18 Clopidogrel Bisulfate (PLAVIX) 75 Mg Tablet, 1 TAB PO QDAY, TAB 11/06/18 Adalimumab (HUMIRA) 40 Mg/0.8 Ml Pen.ij.kit, 40 MG SQ qfriday 07/31/18 Discontinued Scripts Oxycodone/Acetaminophen (OXYCODONE/ACETAMINOPHEN 5MG/325 MG) 5 Mg/325 Mg Tab, 1 TAB PO Q4H PRN for MODERATE PAIN, #20 TAB 0 Refills Prov:TERE URIOSTEGUI MD 11/08/18 Allergies: Coded Allergies: No Known Drug Allergies (Unverified , 01/25/19) Patient History: FH: breast cancer Grandmother Hx Smoking: No Smoking Status: Never Smoker Caffeine Intake: Soda Caffeine/Cups Per Day: 1 CUP/DAY Hx Alcohol Use: Yes Hx Substance Use Disorder: No Social Drug Use: Never Review of Systems Neurological: Weakness Gastrointestinal: Hematochezia, Other (tenesmus) Exam Vital Signs Vital Signs Date Time Temp Pulse Resp B/P (MAP) Pulse Ox O2 Delivery O2 Flow Rate FiO2 01/25/19 21:14 97.8 91 16 104/64 (77) 93 Nasal Cannula 1.0 General Appearance: Alert, Awake, No Acute Distress, Afebrile Neuro: No Gross deficits ENT: Normal Cardiovascular: Normal Rhythm & Peripheral Pulses Respiratory: No Respiratory Distress GI: Abd Soft and Non-Tender Extremities: Soft and Non Tender, Warm, Pulses, Perfused Medical Decision Making Data Points Result Diagram: 01/25/19 1340 01/25/19 1340 Assessment and Plan Problems: (1) Ulcerative colitis, acute Assessment & Plan: Continue chronic Humira. Begin hydrocortisone 100mg IV q8h, mesalamine PO and mesalamine enema for UC flare. If Hgb stable and decreased bleeding could continue treatment outpatient. (2) Chronic anticoagulation Status: Chronic Assessment & Plan: She is on chronic Plavix, 81mg ASA, Eliquis secondary to DVT and iliac stenting . Will hold ASA but continue Plavix and Eliquis at this time due to active DVT and risk of stent thrombosis. If bleeding persists it may become necessary to stop these even with the risks involved. Venous Thromboembolism Antithrombotics Is Pt On Any Antithrombotics?: Yes Exam Sepsis Risk: No Definite Risk RAMOS ALBERTINA UGARTE DO January 25, 2019 21:59
[2019-01-25] MEDS: MELATONIN 3 MG TAB PO PRN (22:18)
[2019-01-26] VITALS (9 sets, daily range): BP systolic 91–107; BP diastolic 55–72
[2019-01-26] MEDS: APAP/HYDROCODONE 325/5 TAB PO PRN ×3 (05:28→17:46)
[2019-01-26] MEDS: HYDROCORTISONE 100 MG/2 ML IVP SCH ×3 (05:29→20:42)
[2019-01-26 06:22] LABS: PLATELET COUNT, AUTOMATED 787 K/uL (150-450)
[2019-01-26] MEDS: MESALAMINE ENEMA PR SCH ×2 (09:00→20:43)
[2019-01-26] MEDS ORDERED: NS 0.9% IVPB ONE (09:00)
[2019-01-26] MEDS ORDERED: IRON DEXTRAN IVPB ONE (09:00)
[2019-01-26] MEDS ORDERED: NS(*) 0.9% 500 ML BAG 500 ML ONE (09:05)
[2019-01-26] MEDS: CLOPIDOGREL BISULFATE 75MG TAB PO SCH (09:21)
[2019-01-26] MEDS: FOLIC ACID 1 MG TAB PO SCH (09:21)
[2019-01-26] MEDS: APIXABAN 2.5 MG TABLET PO SCH ×2 (09:21→20:42)
[2019-01-26] MEDS: MESALAMINE 400 MG TABEC PO SCH ×3 (09:22→20:43)
--- NOTE | 2019-01-26 10:33 | NUR ---
Dr. Delacruz from [facility] calls nurse back and informs what type of iron infusion pt was receiving when under his care. Pt would receive Ferric Carboxymaltose 750mg IV on Day 1 and Day 8. Pt would receive this regimen about every 2 months.
--- NOTE | 2019-01-26 10:38 | Hospitalist Progress Note ---
Subjective Progress Notes Subjective This patient was admitted for ulcerative colitis. She had no acute events overnight. Patient Complains of: Cardiovascular: No: Chest Pain Respiratory: No: Shortness of Breath Physical Exam Vital Signs Date Time Temp Pulse Resp B/P (MAP) Pulse Ox O2 Delivery O2 Flow Rate FiO2 01/26/19 06:51 98.8 68 14 92/68 (76) 100 Nasal Cannula 2.0 Intake and Output 01/26/19 07:00 Intake Total 2290 ml Balance 2290 ml Intake Oral 840 ml IV Total 1200 ml Blood Product 250 ml # Voids 1 Cardiovascular: Regular Rate and Rhythm Respiratory: Clear to Auscultation Result Diagram: 01/26/19 0517 01/25/19 1340 Assessment and Plan Problems: (1) Ulcerative colitis, acute Assessment & Plan: She is on chronic treatment with Humira, which is continued. She has also been started on IV hydrocortisone. (2) Anemia Status: Chronic Assessment & Plan: She does have chronic iron deficiency, but her counts were much lower at admission. She has received 2 units of red cells. Her Hgb is low today, but she is asymptomatic. She had previously been on scheduled IV iron, but has not had this for a while. 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 (3) Chronic anticoagulation Status: Chronic Assessment & Plan: She is on chronic Plavix, 81mg ASA, Eliquis secondary to DVT and iliac stenting . Will hold ASA but continue Plavix and Eliquis at this time due to active DVT and risk of stent thrombosis. If bleeding persists it may become necessary to stop these even with the risks involved. Exam Sepsis Risk: No Definite Risk Problem Qualifiers (1) Anemia: Anemia type: iron deficiency TERE MCDONALD DO January 26, 2019 10:38
[2019-01-26] MEDS ORDERED: FERRIC CARBOXY 750 MG SDV IVP ONE (10:50)
[2019-01-26] MEDS ORDERED: FERRIC CARBOXY 750 MG SDV 750 MG in NS(*) 0.9% 250 ML BAG 250 ML IV ONE (11:30)
[2019-01-26] MEDS ORDERED: MORPHINE 4 MG/ML SDV IVP ONE (20:35)
[2019-01-26] MEDS: DICYCLOMINE HCL 10 MG CAP PO PRN (20:43)
[2019-01-26] MEDS: MELATONIN 3 MG TAB PO PRN (21:10)
[2019-01-27 03:00] VITALS: BP 116/77
[2019-01-27] MEDS: APAP/HYDROCODONE 325/5 TAB PO PRN ×5 (03:11→23:21)
[2019-01-27] MEDS: HYDROCORTISONE 100 MG/2 ML IVP SCH ×3 (05:34→21:24)
[2019-01-27 05:50] LABS: PLATELET COUNT, AUTOMATED 670 K/uL (150-450)
[2019-01-27 07:47] VITALS: BP 108/76
[2019-01-27] MEDS: MESALAMINE 400 MG TABEC PO SCH ×3 (09:02→21:24)
[2019-01-27] MEDS: DICYCLOMINE HCL 10 MG CAP PO PRN ×3 (09:02→21:43)
[2019-01-27] MEDS: MESALAMINE ENEMA PR SCH ×2 (09:03→21:25)
[2019-01-27] MEDS: APIXABAN 2.5 MG TABLET PO SCH ×2 (09:03→21:25)
[2019-01-27] MEDS: FOLIC ACID 1 MG TAB PO SCH (09:03)
[2019-01-27] MEDS: CLOPIDOGREL BISULFATE 75MG TAB PO SCH (09:03)
[2019-01-27] MEDS: PAROXETINE HCL 10 MG TABLET PO SCH (12:19)
[2019-01-27] MEDS ORDERED: NS(*) 0.9% 250 ML BAG 0 ML ONE (14:34)
[2019-01-27 14:49] VITALS: BP 113/74
[2019-01-27 15:03] VITALS: BP 99/69
--- NOTE | 2019-01-27 15:15 | Hospitalist Progress Note ---
Subjective Progress Notes Subjective The patient states she is still feeling quite weak and tired. Physical Exam Vital Signs Date Time Temp Pulse Resp B/P (MAP) Pulse Ox O2 Delivery O2 Flow Rate FiO2 01/27/19 15:03 98.5 68 16 99/69 01/27/19 14:49 96 Nasal Cannula 2.0 Intake and Output 01/27/19 07:00 Intake Total 2381 ml Balance 2381 ml Intake Oral 2106 ml IV Total 275 ml # Voids 5 # Bowel Movements 3 General Appearance: Alert, Awake, No Acute Distress, Afebrile Neuro: No Gross deficits Cardiovascular: Regular Rate and Rhythm Respiratory: Clear to Auscultation GI: Other (Slightly distended, nontender.) Extremities: Warm, Perfused Psych: Appropriate Mood & Affect Result Diagram: 01/27/19 0519 01/25/19 1340 Assessment and Plan Problems: (1) Ulcerative colitis, acute Assessment & Plan: She is on chronic treatment with Humira, which is continued. She has also been started on IV hydrocortisone. She uses mesalamine enemas at home but would like to switch to the foam at discharge. (2) Anemia Status: Chronic Assessment & Plan: She does have chronic iron deficiency, but her counts were much lower at admission. She has received 3 units of red cells. She had pr eviously been on scheduled IV iron, but had not had this for a while prior to admission. She did receive a dose of IV iron 01/26/19. She will need to continue regular iron infusions as an outpatient. (3) Chronic anticoagulation Status: Chronic Assessment & Plan: She is on chronic Plavix, 81mg ASA, Eliquis secondary to DVT and iliac stenting . Will hold ASA but continue Plavix and Eliquis at this time due to active DVT and risk of stent thrombosis. If bleeding persists it may become necessary to stop these even with the risks involved. (4) GENERALIZED ANXIETY DISORDER Status: Chronic Assessment & Plan: The patient has struggled with anxiety at times and has new life stressors which have made this worse. She would like to start medication. Paxil 10mg daily has been started. Time Spent on Plan of Care: < 30 min Exam Sepsis Risk: No Definite Risk Problem Qualifiers (1) Anemia: Anemia type: iron deficiency YSABEL MOORE MD January 27, 2019 15:15
[2019-01-27 17:47] VITALS: BP 108/72
[2019-01-27] MEDS ORDERED: INFLUENZA VIRUS VAC 0.5ML SYR IM ONLY ONE (17:50)
[2019-01-27] MEDS: MELATONIN 3 MG TAB PO PRN (21:23)
[2019-01-27 23:15] VITALS: BP 103/77
[2019-01-28] MEDS: APAP/HYDROCODONE 325/5 TAB PO PRN ×3 (05:02→13:20)
[2019-01-28] MEDS: HYDROCORTISONE 100 MG/2 ML IVP SCH ×2 (05:08→13:20)
[2019-01-28 05:34] LABS: PLATELET COUNT, AUTOMATED 697 K/uL (150-450)
[2019-01-28 08:16] VITALS: BP 113/67
[2019-01-28] MEDS: MESALAMINE ENEMA PR SCH (09:19)
[2019-01-28] MEDS: DICYCLOMINE HCL 10 MG CAP PO PRN (09:20)
[2019-01-28] MEDS: CLOPIDOGREL BISULFATE 75MG TAB PO SCH (09:21)
[2019-01-28] MEDS: FOLIC ACID 1 MG TAB PO SCH (09:21)
[2019-01-28] MEDS: MESALAMINE 400 MG TABEC PO SCH (09:21)
[2019-01-28] MEDS: APIXABAN 2.5 MG TABLET PO SCH (09:21)
[2019-01-28] MEDS: PAROXETINE HCL 10 MG TABLET PO SCH (09:21)
[2019-01-28] MEDS ORDERED: MESA1.2T3 PO (09:51)
[2019-01-28] MEDS ORDERED: MESA4ENE13 RC (09:56)
[2019-01-28] MEDS ORDERED: PARO10TA80 PO (10:04)
[2019-01-28] MEDS ORDERED: PRED-1 PO (10:04)
--- NOTE | 2019-01-28 10:23 | Hospitalist Depart ---
Discharge Summary Reason for Hosp/Final Diag: (1) Ulcerative colitis, acute Hospital Course & Plan: She presented with 1-2 weeks of increased cramping and frequency of stools. She is on chronic treatment with Humira and mesalamine orally and rectally. She was started on IV hydrocortisone with significant improvement in her symptoms. She uses mesalamine enemas at home but would like to switch to the foam at discharge. (2) Anemia Status: Chronic Hospital Course & Plan: She does have chronic iron deficiency, but her counts were much lower at admission. She has received 3 units of red cells. She had previously been on scheduled IV iron, but had not had this for a while prior to admission. She did receive a dose of IV iron 01/26/19. She will need to continue regular iron infusions as an outpatient. Repeat CBC in 5-7 days. (3) Chronic anticoagulation Status: Chronic Hospital Course & Plan: She is on chronic Plavix, 81mg ASA, Eliquis secondary to DVT and iliac stenting . ASA was held but continued Plavix and Eliquis at this time due to active DVT and risk of stent thrombosis. ASA to be restarted as an outpatient. If bleeding persists it may become necessary to stop these even with the risks involved. (4) GENERALIZED ANXIETY DISORDER Status: Chronic Hospital Course & Plan: The patient has struggled with anxiety at times and has new life stressors which have made this worse. She would like to start medication. Paxil 10mg daily has been started. Departure Weight (Pounds): 121 Weight (Ounces): 8.0 Result Diagram: 01/28/19 05001/28/19508 Item Value Date Time Hemoglobin 5.6 g/dL *L 01/25/19 1340 Hemoglobin 8.9 g/dL *L # 01/25/19 2134 Hemoglobin 8.4 g/dL *L 01/26/19 05 Hemoglobin 7.9 g/dL *L 01/27/19 05 Hemoglobin 9.2 g/dL L 01/28/19 0509 White Blood Count 11.6 k/uL H 01/28/19 0509 White Blood Count 9.5 k/uL 01/27/19 05 White Blood Count 7.0 k/uL 01/26/19 05 White Blood Count 11.6 k/uL H 01/25/19 1340 Platelet Count 922 K/uL H 01/25/19 1340 Platelet Count 787 K/uL H 01/26/19 0517 Platelet Count 670 K/uL H 01/27/19 0519 Platelet Count 697 K/uL H 01/28/19 0509 Neutrophils % (Manual) 75 % H 01/28/19 0509 Neutrophils % (Manual) 77 % H 01/27/19 0519 Neutrophils % (Manual) 82 % H 01/26/19 0517 Neutrophils % (Manual) 45 % 01/25/19 1340 Band Neutrophils % 23 % 01/25/19 1340 Lymphocytes % (Manual) 19 % 01/25/19 1340 Lymphocytes % (Manual) 12 % L 01/26/19 05 Lymphocytes % (Manual) 14 % L 01/27/19 05 Band Neutrophils % 1 % 01/27/19 05 Band Neutrophils % 3 % 01/28/19 0509 Lymphocytes % (Manual) 15 % L 01/28/19 0509 Total Bilirubin 0.2 mg/dl 01/25/19 1340 Aspartate Amino Transf (AST/SGOT) 19 U/L 01/25/19 1340 Alanine Aminotransferase (ALT/SGPT) 17 U/L 01/25/19 1340 Total Protein 7.0 g/dl 01/25/19 1340 Alkaline Phosphatase 98 U/L 01/25/19 1340 Ferritin 15 ng/ml 01/26/19 0517 Iron Level 16 ug/dl L 01/26/19 0517 Total Iron Binding Capacity 269 ug/dl 01/26/19 0517 Percent Iron Saturation 5.9 % 01/26/19 0517 Human Chorionic Gonadotropin, Qual Negative 01/25/19 1340 Amylase Level 72 U/L 01/25/19 1340 Lipase 33 U/L 01/25/19 1340 Stool Occult Blood (IFOB) Positive H 01/25/19 1448 Urine RBC 1 /HPF 01/25/19 1650 Urine WBC 1 /HPF 01/25/19 1650 Urine Squamous Epithelial Cells Many /LPF H 01/25/19 1650 Urine Bacteria Negative /HPF 01/25/19 1650 Imaging 01/25/19 Abd/Pelvis CT - There is fairly extensive wall thickening from the rectum through the entire left side of the colon to the mid transverse colon similar in appearance to the prior CT. Findings are consistent with the history of u lcerative colitis. Extensive inflammatory changes seen in the perirectal fat in addition to development of bilateral perianal sinus tracts.. Hyperemic changes in the transverse and descending colon mesentery again noted There are moderately dilated loops of small bowel in the upper abdomen measuring up to 3.4 cm in diameter. This could represent a localized ileus although clinical correlation needed Additional chronic findings as described Condition: Improved Discharge: Home Discharge Instructions Home Meds Active Scripts Hydrocodone Bit/Acetaminophen (HYDROCODON-ACETAMINOPHEN 5-325) 1 Each Tablet, 1- 2 EACH PO Q6H PRN for PAIN, #20 Prov:ABELINO WEBSTER MD 01/28/19 Prednisone 10 Mg Tab (PREDNISONE 10 MG TAB) 10 Mg Tablet, 5-60 MG PO QDAY, #43 TAB 6 pills daily for 2 days, then 5 for 2 days, 4 for 2 days, 3 for 2 days, 2 for 2 days, 1 for 2 days, 1/2 for 2 days Prov:ABELINO WEBSTER MD 01/28/19 Paroxetine Hcl (PAROXETINE HCL) 10 Mg Tablet, 10 MG PO QDAY, #30 Prov:ABELINO WEBSTER MD 01/28/19 Reported Medications Mesalamine (MESALAMINE) 4 Gm/60 Ml Enema, 4 GM RC BID 01/28/19 Mesalamine (Mesalamine) 1.2 Gram Tablet.dr, 1 CAP PO TID 01/28/19 Dicyclomine Hcl (DICYCLOMINE HCL) 10 Mg Capsule, 20 MG PO QHS, CAPSULE 01/25/19 Biotin (BIOTIN) 5 Mg Capsule, 5 MG PO QDAY, CAPSULE 11/07/18 Folic Acid (FOLIC ACID) 0.4 Mg Tablet, 0.4 MG PO DAILY 11/07/18 Apixaban (ELIQUIS) 5 Mg Tablet, 5 MG PO BID 11/06/18 Aspirin (ASPIR 81) 81 Mg Tablet.dr, 81 MG PO QDAY, TAB 11/06/18 Clopidogrel Bisulfate (PLAVIX) 75 Mg Tablet, 1 TAB PO QDAY, TAB 11/06/18 Adalimumab (HUMIRA) 40 Mg/0.8 Ml Pen.ij.kit, 40 MG SQ qfriday 07/31/18 Discontinued Scripts Oxycodone/Acetaminophen (OXYCODONE/ACETAMINOPHEN 5MG/325 MG) 5 Mg/325 Mg Tab, 1 TAB PO Q4H PRN for MODERATE PAIN, #20 TAB 0 Refills Prov:TERE URIOSTEGUI MD 11/08/18 Diet: Regular Activity: As Tolerated Special Instructions: Follow up with your GI specialist as scheduled. Follow up with your PCP in 1-2 weeks. You need a repeat iron infusion in about a week. Set it up with your PCP or GI specialist. CBC in 5-7 days. Go to the ER for fevers, worsening abdominal pain or bloody stools Copies to: [facility] [employer], ONC; Luigi Ramires ; Venous Thromboembolism Antithrombotics Is Pt On Any Antithrombotics?: Yes Problem Qualifiers (1) Anemia: Anemia type: iron deficiency ABELINO WEBSTER MD January 28, 2019 10:23
[2019-01-28] MEDS ORDERED: LOR5/325 PO (10:47)
== END 2019-01-28 13:25 | disposition home or self-care (01) | DRG 386 ==
LOC: ER 13:05 → MED 16:47
PROVIDERS: ADMIT Internal Medicine; ATTEND Internal Medicine
PROC: 30233N1 Transfusion of Nonautologous Red Blood Cells into Peripheral Vein, Percutaneous Approach (ICD-10-PCS; principal; 2019-01-27)
DX: K51.513 Left sided colitis with fistula (principal); D62 Acute posthemorrhagic anemia; D68.32 Hemorrhagic disorder due to extrinsic circulating anticoagulants; K51.511 Left sided colitis with rectal bleeding; F41.1 Generalized anxiety disorder; D50.9 Iron deficiency anemia, unspecified; Z86.718 Personal history of other venous thrombosis and embolism; Z79.01 Long term (current) use of anticoagulants; Z63.5 Disruption of family by separation and divorce
CPT/HCPCS: 36415; 36430; 74177; 81001; 82040; 82150; 82247; 82274; 82310; 82374; 82435; 82565; 82728; 82947; 83540; 83550; 83690; 84075; 84132; 84155; 84295; 84450; 84460; 84520; 84703; 85014; 85018; 85025; 86850; 86900; 86901; 86920; 96361; 96374; 96375; 96376; 99284; J1439; J1720; J2270; J2405; J2930; J3010; J7030; J7040; J7050; P9016; Q9967

== ENCOUNTER 2019-02-11 09:27 | Inpatient (IN) | payer BC ==
[2018-11-07 13:55] VITALS: Ht 162.6 cm; Wt 57.2 kg
[~2019-02-11] VITALS: Ht 162.6 cm; Wt 57.2 kg
[~2019-02-11 09:27] MED LIST changes: +DICY10CA11 PO; +LOR5/325 PO; +MESA1.2T3 PO; +MESA4ENE13 RC; +PARO10TA80 PO; +PRED-1 PO
--- NOTE | 2019-02-11 09:35 | ER Report ---
History and Physical Time Seen By MD: 09:34 HPI/ROS CHIEF COMPLAINT: Gluteal pain HISTORY OF PRESENT ILLNESS: Patient is a 33-year-old female with a history of ulcerative colitis here with complaints of pain in the gluteal cleft area, erythema and concern for abscess/fistula. Patient reportedly fell late last week, twisted her knee and landed on her backside with subsequent development of increasing and progressive pain. Patient has had prior gluteal cleft abscesses in the past which had been drained by Dr. Bustos prompting her concerns today. Patient has been passing bowel movements, does report having small amounts of blood in her stools which are loose. She is able to tolerate by mouth intake and currently denies abdominal pain, nausea, vomiting. Patient is afebrile, mildly tachycardic at time of evaluation. Of note, patient is on Humira and Eliquis REVIEW OF SYSTEMS: Constitutional: No fever, no chills. Eyes: No discharge. ENT: No sore throat. Cardiovascular: No chest pain, no palpitations. Respiratory: No cough, no shortness of breath. Gastrointestinal: No abdominal pain, no vomiting. Genitourinary: No hematuria. Musculoskeletal: No back pain. Skin: + erythema and tenderness in gluteal cleft since recent fall Neurological: No headache. Allergies: Coded Allergies: No Known Drug Allergies (Unverified , 01/25/19) Home Meds Active Scripts Paroxetine Hcl (PAROXETINE HCL) 10 Mg Tablet, 10 MG PO QDAY, #30 Prov:ABELINO WEBSTER MD 01/28/19 Reported Medications Nortriptyline Hcl (NORTRIPTYLINE HCL) 10 Mg Cap, 10 MG PO HS, CAP 02/11/19 Nortriptyline Hcl (NORTRIPTYLINE HCL) 25 Mg Cap, 25 MG PO HS, CAP 02/11/19 Dicyclomine Hcl (DICYCLOMINE HCL) 10 Mg Capsule, 20 MG PO TID, CAPSULE 01/25/19 Biotin (BIOTIN) 5 Mg Capsule, 5 MG PO QDAY, CAPSULE 11/07/18 Folic Acid (FOLIC ACID) 0.4 Mg Tablet, 0.4 MG PO DAILY 11/07/18 Apixaban (ELIQUIS) 5 Mg Tablet, 5 MG PO BID 11/06/18 Aspirin (ASPIR 81) 81 Mg Tablet.dr, 81 MG PO QDAY, TAB 11/06/18 Clopidogrel Bisulfate (PLAVIX) 75 Mg Tablet, 1 TAB PO QDAY, TAB 11/06/18 Adalimumab (HUMIRA) 40 Mg/0.8 Ml Pen.ij.kit, 40 MG SQ qfriday 07/31/18 Discontinued Reported Medications Mesalamine (MESALAMINE) 4 Gm/60 Ml Enema, 4 GM RC BID 01/28/19 Mesalamine (Mesalamine) 1.2 Gram Tablet.dr, 1 CAP PO TID 01/28/19 Discontinued Scripts Hydrocodone Bit/Acetaminophen (HYDROCODON-ACETAMINOPHEN 5-325) 1 Each Tablet, 1- 2 EACH PO Q6H PRN for PAIN, #20 Prov:ABELINO WEBSTER MD 01/28/19 Prednisone 10 Mg Tab (PREDNISONE 10 MG TAB) 10 Mg Tablet, 5-60 MG PO QDAY, #43 TAB 6 pills daily for 2 days, then 5 for 2 days, 4 for 2 days, 3 for 2 days, 2 for 2 days, 1 for 2 days, 1/2 for 2 days Prov:ABELINO WEBSTER MD 01/28/19 Hx Smoking: No Smoking Status: Never Smoker Hx Substance Use Disorder: No Hx Alcohol Use: Yes Constitutional Vital Sign - Last 24 Hours 02/11/19 02/11/19 02/11/19 02/11/19 09:33 09:34 09:57 10:23 Temp 98.4 Pulse 105 108 Resp 20 B/P (MAP) 99/64 99/64 (76) 95/62 (73) Pulse Ox 94 97 02/11/19 02/11/19 02/11/19 02/11/19 10:30 10:35 11:00 11:05 Pulse 104 ??? B/P (MAP) 99/69 (79) ???/??? (1665) Pulse Ox 92 02/11/19 02/11/19 02/11/19 02/11/19 11:30 11:35 12:00 12:05 Pulse 105 107 B/P (MAP) 98/57 (71) 108/71 (83) Pulse Ox 94 02/11/19 12:30 B/P (MAP) 111/71 (84) Physical Exam General Appearance: The patient is alert, has no immediate need for airway protection and no signs of toxicity. Uncomfortable appearing Eyes: Pupils equal and round no pallor or injection. ENT, Mouth: Mucous membranes are moist. Respiratory: There are no retractions, lungs are clear to auscultation. Cardiovascular: Regular rate and rhythm. Gastrointestinal: Abdomen is soft and non tender, no masses, bowel sounds normal. Neurological: No focal neuro deficits Skin: + erythema and mild edema of gluteal cleft, + tender on palpation Musculoskeletal: Neck is supple non tender. Extremities are nontender, nonswollen and have full range of motion. DIFFERENTIAL DIAGNOSIS: After history and physical exam differential diagnosis was considered for abscess, fracture, phlegmon, fistula tract, UC flare Medical Decision Making Data Points Result Diagram: 02/11/19 1015 02/11/19 1015 Laboratory Hematology Test 02/11/19 10:15 Red Blood Count 5.05 M/uL (4.17-5.56) Mean Corpuscular Volume 73.4 fL (80.0-96.0) Mean Corpuscular Hemoglobin 23.0 pg (26.0-33.0) Mean Corpuscular Hemoglobin Concent 31.3 g/dL (32.0-36.0) Red Cell Distribution Width 36.9 % (11.5-14.5) Mean Platelet Volume 8.3 fL (7.2-11.1) Neutrophils (%) (Auto) 65.3 % (39.4-72.5) Lymphocytes (%) (Auto) 18.8 % (17.6-49.6) Monocytes (%) (Auto) 13.1 % (4.1-12.4) Eosinophils (%) (Auto) 2.0 % (0.4-6.7) Basophils (%) (Auto) 0.8 % (0.3-1.4) Nucleated RBC Relative Count (auto) 0.0 /100WBC Neutrophils # (Auto) 4.7 K/uL (2.0-7.4) Lymphocytes # (Auto) 1.4 K/uL (1.3-3.6) Monocytes # (Auto) 1.0 K/uL (0.3-1.0) Eosinophils # (Auto) 0.1 K/uL (0.0-0.5) Basophils # (Auto) 0.1 K/uL (0.0-0.1) Nucleated RBC Absolute Count (auto) 0.00 K/uL Peripheral Blood Smear Yes Y/N Erythrocyte Sedimentation Rate 65 mm/HOUR (0-20) Prothrombin Time 15.5 seconds (12.0-14.4) Prothromb Time International Ratio 1.22 Activated Partial Thromboplast Time 33 seconds (23-35) Sodium Level 132 mmol/L (137-145) Potassium Level 3.9 mmol/L (3.5-5.0) Chloride Level 99 mmol/L (98-107) Carbon Dioxide Level 27 mmol/L (22-31) Blood Urea Nitrogen 15 mg/dl (7-18) Creatinine 0.60 mg/dl (0.52-1.04) Glomerular Filtration Rate Calc > 60.0 Random Glucose 90 mg/dl (75-110) Calcium Level 8.7 mg/dl (8.4-10.2) Total Bilirubin 0.3 mg/dl (0.2-1.3) Aspartate Amino Transf (AST/SGOT) 23 U/L (0-35) Alanine Aminotransferase (ALT/SGPT) 48 U/L (0-56) Alkaline Phosphatase 96 U/L (0-126) C-Reactive Protein 7.5 mg/dl (<1.0) Total Protein 6.8 g/dl (6.3-8.2) Albumin 3.3 g/dl (3.5-5.0) Lipase 30 U/L (23-300) Human Chorionic Gonadotropin, Qual Negative (NEGATIVE) Chemistry Test 02/11/19 10:15 White Blood Count 7.2 k/uL (4.5-11.0) Red Blood Count 5.05 M/uL (4.17-5.56) Hemoglobin 11.6 g/dL (12.0-16.0) Hematocrit 37.1 % (34.0-47.0) Mean Corpuscular Volume 73.4 fL (80.0-96.0) Mean Corpuscular Hemoglobin 23.0 pg (26.0-33.0) Mean Corpuscular Hemoglobin Concent 31.3 g/dL (32.0-36.0) Red Cell Distribution Width 36.9 % (11.5-14.5) Platelet Count 433 K/uL (150-450) Mean Platelet Volume 8.3 fL (7.2-11.1) Neutrophils (%) (Auto) 65.3 % (39.4-72.5) Lymphocytes (%) (Auto) 18.8 % (17.6-49.6) Monocytes (%) (Auto) 13.1 % (4.1-12.4) Eosinophils (%) (Auto) 2.0 % (0.4-6.7) Basophils (%) (Auto) 0.8 % (0.3-1.4) Nucleated RBC Relative Count (auto) 0.0 /100WBC Neutrophils # (Auto) 4.7 K/uL (2.0-7.4) Lymphocytes # (Auto) 1.4 K/uL (1.3-3.6) Monocytes # (Auto) 1.0 K/uL (0.3-1.0) Eosinophils # (Auto) 0.1 K/uL (0.0-0.5) Basophils # (Auto) 0.1 K/uL (0.0-0.1) Nucleated RBC Absolute Count (auto) 0.00 K/uL Peripheral Blood Smear Yes Y/N Erythrocyte Sedimentation Rate 65 mm/HOUR (0-20) Prothrombin Time 15.5 seconds (12.0-14.4) Prothromb Time International Ratio 1.22 Activated Partial Thromboplast Time 33 seconds (23-35) Glomerular Filtration Rate Calc > 60.0 Calcium Level 8.7 mg/dl (8.4-10.2) Total Bilirubin 0.3 mg/dl (0.2-1.3) Aspartate Amino Transf (AST/SGOT) 23 U/L (0-35) Alanine Aminotransferase (ALT/SGPT) 48 U/L (0-56) Alkaline Phosphatase 96 U/L (0-126) C-Reactive Protein 7.5 mg/dl (<1.0) Total Protein 6.8 g/dl (6.3-8.2) Albumin 3.3 g/dl (3.5-5.0) Lipase 30 U/L (23-300) Human Chorionic Gonadotropin, Qual Negative (NEGATIVE) Coagulation Test 02/11/19 10:15 Prothrombin Time 15.5 seconds Prothromb Time International Ratio 1.22 Activated Partial Thromboplast Time 33 seconds EKG/Imaging Imaging PATIENT NAME: Rika Esteban : 1985 MR: [id number] V: [id number] EXAM DATE: ORDERING PHYSICIAN: LUCILA MESSINA TECHNOLOGIST: Location: [facility] [place] Patient: Rika Esteban : 1985 Visit/Account:[id number] Date of Sevice: 02/11/2019 CT ABDOMEN PELVIS W/ CON HISTORY: Ulcerative colitis. Evaluate abscess/fistula. TECHNIQUE: Axial images were obtained through the abdomen and pelvis with intravenous contrast . One of the following dose optimization techniques was utilized in the performance of this exam: automated exposure control; adjustment of the mA and/or kv according to patient size; or use of iterative reconstruction technique. Specific details can be referenced in the facility's radiology CT exam operational policy. CONTRAST: 75 cc of Isovue-370 COMPARISON: CT abdomen/pelvis 01/25/2019 FINDINGS: Visualized lung bases: Negative. Hepatobiliary: New 6-7 mm low-attenuation focus within the right lobe the liver (coronal image 59). Spleen: Negative. Adrenals: Negative. Pancreas: Negative. Kidneys/ureters/bladder: Negative. Bowel/peritoneum/mesentery: Large amount of colonic stool. Chronic thickening of the colon especially the distal descending, sigmoid and rectum. No bowel obstruction or free air. Reidentified are mildly enlarging perianal collections of fluid and gas on the right and left with peripheral enhancement with co mponent measuring 2.7 x 1.4 cm on the left (series 5 image 7), previously 2.1 x 0.9 cm and 3.5 x 1.2 cm on the right (series 5 image 6), previously 3.0 x 1.2 cm increasing skin thickening and subcutaneous soft tissue stranding along the bilateral adjacent gluteal folds. Vessels: Left common iliac venous stent. Incomplete opacification of the right external iliac and common iliac veins Lymph nodes: Negative. Pelvic genitourinary: Well-positioned IUD. Bones/body wall: Negative. Other findings: None significant IMPRESSION: 1. Chronic colonic thickening consistent with ulcerative colitis. Mildly enlarging bilateral perianal fluid collections with gas consistent with enlarging abscess/fistula. 2. Suboptimal opacification of the right iliac venous system which may be secondary to timing of the contrast bolus although thrombus not entirely excluded. 3. New 6-7 mm low attenuation lesion within the right lobe of the liver. Recommend attention on follow up . Report Dictated By: Dionisio Noble MD at 02/11/2019 11:28 AM ED Course/Re-evaluation ED Course Patient is a 33-year-old female here with complaints of gluteal cleft swelling, erythema and pain which developed after she fell on landing on her backside. Patient is concerned that she is developing an abscess or fistula prompting evaluation today. She is passing bowel movements which are loose, small amounts of blood, but is tolerating oral intake without issues. On physical examination, there is an erythematous, fluctuant and tender area surrounding the rectum and the gluteal cleft which prompted CT imaging. CT imaging was concerning for what seems to be a reaccumulation of fluid with gas consistent with an abscess. Patient's prior surgical drainage was back in October with Dr. Bustos which is when she had her last CT scan which her current collection seems to be slightly increased compared to prior. Patient's ESR and CRP were elevated however his CBC was unremarkable with improvement in the H&H. Patient was given IV fluid bolus, fentanyl for analgesia. I discussed the patient with Dr. Mckeon who recommended administration of Zosyn. Blood cultures and lactate were also added on due to CT imaging findings. Patient's last dose of Eliquis was this morning and the patient will likely have to hold this medication for 36 hours prior to surgical intervention. Patient was accepted to surgical service for further intervention and treatment. Cultures/LA collected and pending Decision to Disposition Date: February 11, 2019 Decision to Disposition Time: 13:16 Depart Departure Latest Vital Signs Vital Signs Date Time Temp Pulse Resp B/P (MAP) Pulse Ox O2 Delivery O2 Flow Rate FiO2 02/11/19 12:30 111/71 (84) 02/11/19 12:05 107 94 02/11/19 09:33 98.4 20 Impression: Primary Impression: Perirectal abscess Additional Impressions: Chronic anticoagulation Perianal fistula Condition: Condition Unchanged Disposition: Admitted from ER Problem Qualifiers LUCILA MESSINA DO February 11, 2019 09:35
[2019-02-11] MEDS ORDERED: NS(*) 0.9% 1000 ML BAG 1,000 ML IV ONE (10:04)
[2019-02-11] MEDS ORDERED: fentaNYL CITR 100 MCG/2 ML AMP IVP ONE ×2 (10:05→13:00)
[2019-02-11 10:26] LABS: PLATELET COUNT, AUTOMATED 433 K/uL (150-450)
[2019-02-11 10:30] LABS: INR 1.22
[2019-02-11] MEDS ORDERED: IOPAMIDOL 61% 100 ML INFUS BTL 0 ML ONE (10:49)
[2019-02-11] MEDS ORDERED: IOPAMIDOL 76% 100 ML INFUS BTL 100 ML ONE (10:50)
--- NOTE | 2019-02-11 12:02 | RADIOLOGY IMAGING REPORT ---
FACILITY: [facility] - [place] PATIENT NAME: Rika Esteban : 1985 MR: [id number] V: [id number] EXAM DATE: ORDERING PHYSICIAN: LUCILA MESSINA TECHNOLOGIST: Location: [facility] [place] Patient: Rika Esteban : 1985 Visit/Account:[id number] Date of Sevice: 02/11/2019 CT ABDOMEN PELVIS W/ CON HISTORY: Ulcerative colitis. Evaluate abscess/fistula. TECHNIQUE: Axial images were obtained through the abdomen and pelvis with intravenous contrast . One of the following dose optimization techniques was utilized in the performance of this exam: automate d exposure control; adjustment of the mA and/or kv according to patient size; or use of iterative rec onstruction technique. Specific details can be referenced in the facility's radiology CT exam operati onal policy. CONTRAST: 75 cc of Isovue-370 COMPARISON: CT abdomen/pelvis 01/25/2019 FINDINGS: Visualized lung bases: Negative. Hepatobiliary: New 6-7 mm low-attenuation focus within the right lobe the liver (coronal image 59). Spleen: Negative. Adrenals: Negative. Pancreas: Negative. Kidneys/ureters/bladder: Negative. Bowel/peritoneum/mesentery: Large amount of colonic stool. Chronic thickening of the colon especiall y the distal descending, sigmoid and rectum. No bowel obstruction or free air. Reidentified are mildl y enlarging perianal collections of fluid and gas on the right and left with peripheral enhancement w ith component measuring 2.7 x 1.4 cm on the left (series 5 image 7), previously 2.1 x 0.9 cm and 3.5 x 1.2 cm on the right (series 5 image 6), previously 3.0 x 1.2 cm increasing skin thickening and subc utaneous soft tissue stranding along the bilateral adjacent gluteal folds. Vessels: Left common iliac venous stent. Incomplete opacification of the right external iliac and co mmon iliac veins Lymph nodes: Negative. Pelvic genitourinary: Well-positioned IUD. Bones/body wall: Negative. Other findings: None significant IMPRESSION: 1. Chronic colonic thickening consistent with ulcerative colitis. Mildly enlarging bilateral perianal fluid collections with gas consistent with enlarging abscess/fistula. 2. Suboptimal opacification of the right iliac venous system which may be secondary to timing of the contrast bolus although thrombus not entirely excluded. 3. New 6-7 mm low attenuation lesion within the right lobe of the liver. Recommend attention on follo w up . Report Dictated By: Dionisio Noble MD at 02/11/2019 11:28 AM Report E-Signed By: Dionisio Noble MD at 02/11/2019 11:57 AM WSN:[id number]
[2019-02-11] MEDS ORDERED: PIPERACILLIN/TAZO*3.375GM VIAL 3.375 GM in NS(*) 0.9% 100 ML MINI-BAG 100 ML IVPB ONE (12:20)
[2019-02-11] MEDS ORDERED: NALOXONE HCL 0.4 MG/ML VIAL IVP PRN (13:55)
[2019-02-11] MEDS ORDERED: ONDANSETRON 4 MG/2 ML VIAL IVP PRN (13:55)
[2019-02-11] MEDS ORDERED: FLUSH 10 ML SYR IVP PRN (13:55)
[2019-02-11 14:09] VITALS: BP 108/63
[2019-02-11] MEDS ORDERED: NOR10 PO ×3 (14:17→20:55)
[2019-02-11] MEDS ORDERED: NOR25 PO ×2 (14:17→20:55)
[2019-02-11] MEDS: APAP/HYDROCODONE 325/5 TAB PO PRN ×2 (14:23→19:52)
[2019-02-11] MEDS ORDERED: PIPERACILLIN/TAZO*3.375GM VIAL 3.375 GM in NS(*) 0.9% 100 ML MINI-BAG 100 ML IVPB SCH (18:00)
[2019-02-11] MEDS ORDERED: NS(*) 0.9% 250 ML BAG 250 ML ONE (18:18)
[2019-02-11] MEDS: PIPERACILLIN/TAZO*3.375GM VIAL 3.375 GM in NS(*) 0.9% 100 ML MINI-BAG 100 ML IVPB SCH ×2 (18:22→23:50)
[2019-02-11 19:20] VITALS: BP 102/64
--- NOTE | 2019-02-11 20:33 | Gen Surgery History & Physical ---
History of Present Illness Chief Complaint Perianal pain and discharge History of Present Illness 33 y/o WF with dx of Ulcerative colitis made 12 years ago who presents with recurrent perirectal abscess. 2 days of drainage. Pt is on Humira weekly. Denies F/C. Notable for being on Eliquis, Plavix and ASA for a Jul 2018 arterial thrombus and stent placement (Margarita) PMHX: Ulcerative Colitis (Dx age 21 Immunosuppression Iliac artery thrombus, stent H/O DVT x 2 Full anticoagulation, Eliquis x 6 months (March 2019) Anti platelet therapy, Plavix and ASA Recurrent perirectal abscesses x 2 Depression PSHX: Perirectal abscess drainage, Oct 2018, Dr Toscano Iliac artery stent placement, Jul 2018 (Dr Margarita tosis) Perirectal abscess, March 2018 ([place]e) MEDS: Humira, weekly Bentyl 20 mg BID and PRN Paxil 10 mg QD Eliquis 5 mg BID Plavix 75 mg QD Aspirin 81 mg QD HABITS: No Tobacco No ETOH No Drugs SOCIAL: 2 children, age 8 and 12 Not working Recent move to [facility] in [facility] from ALLERGIES: Morphine Tramadol Remicade FHX: Mother- Alive and Well Father- Alive and Well Brother x 2- Alive and Well ROS: + for recent knee injury/fall seizure hx x 3, drug induced BRBPR- occasional Last Colonoscopy 2 years ago- Followed by GI in [place] History Home Meds Active Scripts Paroxetine Hcl (PAROXETINE HCL) 10 Mg Tablet, 10 MG PO QDAY, #30 Prov:ABELINO WEBSTER MD 01/28/19 Reported Medications Dicyclomine Hcl (DICYCLOMINE HCL) 10 Mg Capsule, 20 MG PO TID, CAPSULE 01/25/19 Biotin (BIOTIN) 5 Mg Capsule, 5 MG PO QDAY, CAPSULE 11/07/18 Folic Acid (FOLIC ACID) 0.4 Mg Tablet, 0.4 MG PO DAILY 11/07/18 Apixaban (ELIQUIS) 5 Mg Tablet, 5 MG PO BID 11/06/18 Aspirin (ASPIR 81) 81 Mg Tablet.dr, 81 MG PO QDAY, TAB 11/06/18 Clopidogrel Bisulfate (PLAVIX) 75 Mg Tablet, 1 TAB PO QDAY, TAB 11/06/18 Adalimumab (HUMIRA) 40 Mg/0.8 Ml Pen.ij.kit, 40 MG SQ qfriday 07/31/18 Discontinued Reported Medications Mesalamine (MESALAMINE) 4 Gm/60 Ml Enema, 4 GM RC BID 01/28/19 Mesalamine (Mesalamine) 1.2 Gram Tablet.dr, 1 CAP PO TID 01/28/19 Discontinued Scripts Hydrocodone Bit/Acetaminophen (HYDROCODON-ACETAMINOPHEN 5-325) 1 Each Tablet, 1- 2 EACH PO Q6H PRN for PAIN, #20 Prov:ABELINO WEBSTER MD 01/28/19 Prednisone 10 Mg Tab (PREDNISONE 10 MG TAB) 10 Mg Tablet, 5-60 MG PO QDAY, #43 TAB 6 pills daily for 2 days, then 5 for 2 days, 4 for 2 days, 3 for 2 days, 2 for 2 days, 1 for 2 days, 1/2 for 2 days Prov:ABELINO WEBSTER MD 01/28/19 Allergies: Coded Allergies: No Known Drug Allergies (Unverified , 01/25/19) Patient History: FH: breast cancer Grandmother Review of Systems Constitutional: No Fever, No Weight Loss, No Weight Gain, No Chills Neurological: No Syncope, No Confusion, No Weakness, No Dizziness Eyes: No Vision Change, No Loss of Vision, No Photophobia ENT: No Hearing Loss, No Sore Throat Cardiovascular: No Chest Pain, No Orthostatic Hypotension Respiratory: No Shortness of Breath, No Cough Gastrointestinal: No Nausea, No Vomiting; Diarrhea; No Dysphagia, No Consti pation, No Early Satiety, No Hematemesis, No Hematochezia, No Melena, No Abdominal Pain Genitourinary: No Dysuria, No Hematuria Musculoskeletal: Sprain, Strain; No Pain, No Impaired Mobility Psychiatric: Depression, Anxiety Exam General Appearance: Alert, Awake, No Acute Distress, Afebrile Neuro: No Gross deficits Eyes: PERRLA, Other (EOMI) ENT: Normal, Moist Mucous Membranes, Oropharynx Clear Neck: No Masses Cardiovascular: Normal Rhythm & Peripheral Pulses, Regular Rate and Rhythm, No Edema Respiratory: No Respiratory Distress, Clear to Auscultation GI: Abd Soft and Non-Tender, Other (Perirectal area: Left and right lateral drainage, induration) : No CVA Tenderness Lymph: No Adenopathy Musculoskeletal: No Weakness/Pain Extremities: Soft and Non Tender, Warm, Pulses, Perfused; No Edema Integumentary: Skin Intact without Lesion / Mass Psych: Alert & Oriented X3, Appropriate Mood & Affect Medical Decision Making Data Points Result Diagram: 02/11/19 1015 02/11/19 1015 EKG / Imaging Monitor Interpretation: Normal Sinus Rhythm Imaging CT ABD/PELVIS 02/11/19: 1. Chronic colonic thickening consistent with ulcerative colitis. 2. Mildly enlarging bilateral perianal fluid collections with gas consistent with enlarging abscess/fistula. 3. Suboptimal opacification of the right iliac venous system which may be secondary to timing of the contrast bolus although thrombus not entirely excluded. 4. New 6-7 mm low attenuation lesion within the right lobe of the liver. Recommend attention on follow up . Assessment and Plan Problems: (1) Antiplatelet or antithrombotic long-term use Status: Chronic Assessment & Plan: HOLD at this time for surgery (2) Immunosuppressed status Status: Chronic Assessment & Plan: Will manage with antibiotics and drainage given immunosuppression status (3) Liver mass Status: Acute Assessment & Plan: New 6-7 mm low attenuation lesion within the right lobe of the liver; Seen on recent CT scan; Will need further evaluation or F/U (4) Depression Status: Chronic (5) Arterial thrombosis Status: Chronic Assessment & Plan: Iliac artery; Will need to resume anticoagulation and a ntiplatelet therapy (fresh stent) as soon as possible after surgery (6) Ulcerative pancolitis Status: Chronic Assessment & Plan: Followed by GI; Needs to f/u with Colorectal surgeon (7) Chronic anticoagulation Status: Chronic Assessment & Plan: HOLD Eliquis at this time; May need bridging (8) Perirectal abscess Status: Resolved Assessment & Plan: Will manage with antibiotics and drainage given immu nosuppression status; NPO after 0800; IVF; Delay surgery due to Eliquis full anticoagulation and no reversal (9) History of DVT (deep vein thrombosis) Status: Chronic Condition Will turn over the case and its further management to Dr Raymond Vaca of surgery starting 0700 on 12 Feb 2019. Time Spent: > 30 min (I spent 90 minutes in the ED with the pt, the family and the EM attending Dr Berman; counselling and coordination of care; documentation, followup plans; treatment plans given her immunosuppression and f ull anticoagulation, timing of surgery) Copies to: RAYMOND VACA ; Venous Thromboembolism VTE Risk Patient's VTE Risk: High VTE Diagnostic Test 2 Days Prior to Admit: No Antithrombotics Is Pt On Any Antithrombotics?: Yes Problem Qualifiers (1) Depression: Depression Type: unspecified Qualified Codes: F32.9 - Major depressive disorder, single episode, unspecified SHAWN WALDEN MD February 11, 2019 20:26
[2019-02-11] MEDS: NORTRIPTYLINE HCL 10 MG CAP PO SCH (22:39)
[2019-02-11] MEDS: DICYCLOMINE HCL 10 MG CAP PO SCH (22:39)
[2019-02-11] MEDS: NORTRIPTYLINE HCL 25 MG CAP PO SCH (22:39)
[2019-02-11] MEDS: KCL/D1/2NS 20 MEQ 1000 ML 1,000 ML IV PRN (22:40)
[2019-02-12 04:13] VITALS: BP 108/61
[2019-02-12] MEDS: APAP/HYDROCODONE 325/5 TAB PO PRN ×2 (04:16→18:00)
[2019-02-12] MEDS: PIPERACILLIN/TAZO*3.375GM VIAL 3.375 GM in NS(*) 0.9% 100 ML MINI-BAG 100 ML IVPB SCH ×4 (05:40→23:45)
[2019-02-12 06:22] LABS: PLATELET COUNT, AUTOMATED 336 K/uL (150-450)
[2019-02-12 06:35] LABS: INR 1.19
[2019-02-12 07:12] VITALS: BP 97/58
[2019-02-12] MEDS: HYDROmorphone HCL 2 MG/ML SDV IVP PRN ×3 (07:17→20:23)
[2019-02-12] MEDS: KCL/D1/2NS 20 MEQ 1000 ML 1,000 ML IV PRN ×2 (07:18→17:16)
[2019-02-12] MEDS: PAROXETINE HCL 10 MG TABLET PO SCH (09:11)
[2019-02-12] MEDS: DICYCLOMINE HCL 10 MG CAP PO SCH ×3 (09:11→20:18)
[2019-02-12] MEDS: FOLIC ACID 1 MG TAB PO SCH (09:12)
--- NOTE | 2019-02-12 10:59 | Medical Nutrition Therapy ---
Nutrition Anthropometrics Height (Inches): 64.00 Height (Calculated Centimeters: 162.419910 Weight (Pounds): 126 Weight (Calculated Kilograms): 57.153 BMI: 21.6 Dm Nutrition Score: Adequate Dm Nutrition Risk Score: 19 Dietary Referral Nutrition Risk Factors: Nutrition Risk Comment: Physical Findings Physical Appearance: WNR Skin Appearance Skin Appearance: Edema Edema Location Modifier: Edema Location: Type of Edema: Degree of Edema: Gastrointestinal Symptoms GI Symtoms: Tube Present: Bowel Sounds: Recent Bowel Pattern: Stool Characteristics: Nutritional Diagnosis Nutritional Risk Acuity 2: GI Malabsorption (hx ulcerative colitis), Abcess/Non-Healing Wound Past Medical History: Hx of Ulcerative Colitis, arterial thrombosis, anemia. Nutritional Acuity: 2-Moderate Nutrition Diagnosis: Inadequate Food Intake Nutrition Etiology: Physiological Causes Nutrition Problem/Etiology/Sym: AEB dx preirectal avcessss and hcx ulcerative colitis Energy Requirement: 2110 (MSJ X 1.3 SF) Protein Requirement: 68 (1.2gm.kg) Fluid Requirement: 1710 (30ml/kg) Diet Type: Diet as Tolerated KATINA/REG Nutrition Intervention: Cont diet as ordered, Encourage intake Diet Comment To RSA: ENCOURAGE HIGH PROTEIN FOODS Nutrition Monitoring & Eval Nutrition Goals: Eat 75-100% Meal RD Patient Assessment Time: [address] Assessment Type: RD Assessment Patient Nutrition Acuity: 2-Moderate Follow Up Date: February 17, 2019 Nutritional Comment: 02/12 Pt admitted for perirectal absess. pt has hx of ulcerative colitis. Pt on regular diet and eating 100%. Alb low at 2,.5. Will encourage high protein foods. Will cont to monitor and encourage intake. CLAUDIA VELA February 12, 2019 10:59
[2019-02-12 12:13] VITALS: BP 128/60
[2019-02-12 14:42] VITALS: BP 111/63
--- NOTE | 2019-02-12 17:41 | General Surgery Progress Note ---
Subjective Progress Notes Subjective still having drainage from perianal abscesses Physical Exam Vital Signs Date Time Temp Pulse Resp B/P (MAP) Pulse Ox O2 Delivery O2 Flow Rate FiO2 02/12/19 14:42 98.9 108 16 111/63 (79) 94 Room Air 02/12/19 12:41 1.0 Intake and Output 02/12/19 07:00 Intake Total 2780 ml Balance 2780 ml Intake Oral 1680 ml IV Total 1100 ml # Voids 6 # Bowel Movements 3 General Appearance: No Acute Distress Cardiovascular: Other (mildly tachy) GI: Other (abd soft) Result Diagram: 02/12/1954002/12/19540 Monitor Interpretation: Normal Sinus Rhythm Assessment and Plan Problems: (1) Antiplatelet or antithrombotic long-term use Status: Chronic Assessment & Plan: HOLD at this time for surgery (2) Immunosuppressed status Status: Chronic Assessment & Plan: Will manage with antibiotics and drainage given immunosuppression status (3) Liver mass Status: Acute Assessment & Plan: New 6-7 mm low attenuation lesion within the right lobe of the liver; Seen on recent CT scan; Will need further evaluation or F/U (4) Depression Status: Chronic (5) Arterial thrombosis Status: Chronic Assessment & Plan: Iliac artery; Will need to resume anticoagulation and antiplatelet therapy (fresh stent) as soon as possible after surgery (6) Ulcerative pancolitis Status: Chronic Assessment & Plan: Followed by GI; Needs to f/u with Colorectal surgeon (7) Chronic anticoagulation Status: Chronic Assessment & Plan: HOLD Eliquis at this time; May need bridging (8) Perirectal abscess Status: Resolved Assessment & Plan: Will manage with antibiotics and drainage given immunosuppression status; NPO after 0800; IVF; Delay surgery due to Eliquis full anticoagulation and no reversal 02/12/19: cont abx. hold anticoag. i&d tomorrow in OR. (9) History of DVT (deep vein thrombosis) Status: Chronic Exam Sepsis Risk: No Definite Risk Problem Qualifiers (1) Depression: Depression Type: unspecified Qualified Codes: F32.9 - Major depressive disorder, single episode, unspecified TALIA LAMB February 12, 2019 17:41
[2019-02-12 19:47] VITALS: BP 98/55
[2019-02-12] MEDS: NORTRIPTYLINE HCL 25 MG CAP PO SCH (20:17)
[2019-02-12] MEDS: NORTRIPTYLINE HCL 10 MG CAP PO SCH (20:18)
[2019-02-13] MEDS: APAP/HYDROCODONE 325/5 TAB PO PRN ×4 (01:27→20:02)
[2019-02-13] MEDS: KCL/D1/2NS 20 MEQ 1000 ML 1,000 ML IV PRN (03:57)
[2019-02-13 03:59] VITALS: BP 99/53
[2019-02-13] MEDS: HYDROmorphone HCL 2 MG/ML SDV IVP PRN ×3 (04:05→18:00)
[2019-02-13] MEDS: PIPERACILLIN/TAZO*3.375GM VIAL 3.375 GM in NS(*) 0.9% 100 ML MINI-BAG 100 ML IVPB SCH ×4 (06:44→23:30)
[2019-02-13 07:02] VITALS: BP 101/57
--- NOTE | 2019-02-13 07:23 | General Surgery Progress Note ---
Subjective Progress Notes Subjective no acute events Physical Exam Vital Signs Date Time Temp Pulse Resp B/P (MAP) Pulse Ox O2 Delivery O2 Flow Rate FiO2 02/13/19 07:02 98.5 96 16 101/57 (72) 92 Room Air 02/12/19 22:13 1.0 Intake and Output 02/13/19 07:00 Intake Total 3240 ml Balance 3240 ml Intake Oral 1040 ml IV Total 2200 ml # Voids 2 # Bowel Movements 2 General Appearance: No Acute Distress Cardiovascular: Other (reg rate) Result Diagram: 02/12/19 0541 02/12/19 0541 Monitor Interpretation: Normal Sinus Rhythm Assessment and Plan Problems: (1) Antiplatelet or antithrombotic long-term use Status: Chronic Assessment & Plan: HOLD at this time for surgery (2) Immunosuppressed status Status: Chronic Assessment & Plan: Will manage with antibiotics and drainage given immunosuppression status (3) Liver mass Status: Acute Assessment & Plan: New 6-7 mm low attenuation lesion within the right lobe of the liver; Seen on recent CT scan; Will need further evaluation or F/U (4) Depression Status: Chronic (5) Arterial thrombosis Status: Chronic Assessment & Plan: Iliac artery; Will need to resume anticoagulation and antiplatelet therapy (fresh stent) as soon as possible after surgery (6) Ulcerative pancolitis Status: Chronic Assessment & Plan: Followed by GI; Needs to f/u with Colorectal surgeon (7) Chronic anticoagulation Status: Chronic Assessment & Plan: HOLD Eliquis at this time; May need bridging (8) Perirectal abscess Status: Resolved Assessment & Plan: Will manage with antibiotics and drainage given immunosuppression status; NPO after 0800; IVF; Delay surgery due to Eliquis full anticoagulation and no reversal 02/12/19: cont abx. hold anticoag. i&d tomorrow in OR. 02/13/19: abx. npo. i&d today of perianal abscesses. (9) History of DVT (deep vein thrombosis) Status: Chronic Exam Sepsis Risk: No Definite Risk Problem Qualifiers (1) Depression: Depression Type: unspecified Qualified Codes: F32.9 - Major depressive disorder, single episode, unspecified TLAIA LAMB February 13, 2019 07:23
[2019-02-13] MEDS: FOLIC ACID 1 MG TAB PO SCH (09:00)
[2019-02-13] MEDS: DICYCLOMINE HCL 10 MG CAP PO SCH ×3 (09:00→21:10)
[2019-02-13] MEDS ORDERED: NORMOSOL R SOLN(*) 1000 ML BAG 1,000 ML IV ONE (09:45)
[2019-02-13] MEDS ORDERED: FAMOTIDINE 20 MG TAB PO ONE (09:45)
[2019-02-13 11:12] VITALS: BP 99/63
[2019-02-13] MEDS ORDERED: MIDAZOLAM 2 MG/2 ML VIAL IVP ONE (11:45)
[2019-02-13] MEDS ORDERED: ONDANSETRON 4 MG/2 ML VIAL ONE (12:10)
[2019-02-13] MEDS ORDERED: PROPOFOL EMUL(*) 10MG/ML 20 ML 20 ML ONE (12:10)
[2019-02-13] MEDS ORDERED: HYDROGEN PEROXID 3% 473 ML BTL TP ONE (12:10)
[2019-02-13] MEDS ORDERED: DEXAMETHASONE SOD PHOS 10MG/ML ONE (12:10)
[2019-02-13] MEDS ORDERED: BUPIVACAINE/EPI 0.5% 50ML VIAL INFIL ONE (12:11)
[2019-02-13] MEDS ORDERED: LIDOCAINE 2% JELLY 30 ML TUBE ONE (12:12)
[2019-02-13] MEDS ORDERED: fentaNYL CITR 100 MCG/2 ML AMP ONE ×3 (12:25→14:10)
[2019-02-13 14:40] VITALS: BP 113/73
[2019-02-13] MEDS: PAROXETINE HCL 10 MG TABLET PO SCH (15:45)
--- NOTE | 2019-02-13 15:50 | Antimicrobial Stewardship ---
Antimicrobial Time Out Antimicrobial Stewardship MD Service: Other (Surgeon, Dr. Mckeon.) Indications: Other (Perirectal abscess with drainage.) Antimicrobial Used Zosyn 3.375 gm Start Date: February 11, 2019 Culture Results: Yes (BC with n ogrowth after 2 days.) YSABEL LEAL February 13, 2019 15:50
[2019-02-13] MEDS ORDERED: DICL100G39 TOP (16:13)
[2019-02-13] MEDS ORDERED: HYDR-385 PO (16:13)
[2019-02-13 19:27] VITALS: BP 106/58
[2019-02-13] MEDS: NORTRIPTYLINE HCL 10 MG CAP PO SCH (21:10)
[2019-02-13] MEDS: NORTRIPTYLINE HCL 25 MG CAP PO SCH (21:10)
[2019-02-13 23:23] VITALS: BP 107/58
[2019-02-14] MEDS: HYDROmorphone HCL 2 MG/ML SDV IVP PRN ×3 (00:13→12:00)
[2019-02-14] MEDS: APAP/HYDROCODONE 325/5 TAB PO PRN ×2 (05:26→09:48)
[2019-02-14] MEDS: PIPERACILLIN/TAZO*3.375GM VIAL 3.375 GM in NS(*) 0.9% 100 ML MINI-BAG 100 ML IVPB SCH ×2 (05:26→12:46)
[2019-02-14 05:27] VITALS: BP 102/66
--- NOTE | 2019-02-14 07:40 | OPERATIVE REPORT 1 ---
EVENT DATE: February 13, 2019 SURGEON: Raymond Vaca MD ANESTHESIOLOGIST: Kev Peterson MD ANESTHESIA: General and local. 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 PREOPERATIVE DIAGNOSIS Ulcerative colitis and perianal abscesses. POSTOPERATIVE DIAGNOSIS Ulcerative colitis and perianal abscesses. PROCEDURE PERFORMED Incision and drainage of perianal abscesses. FLUIDS IV crystalloid. ESTIMATED BLOOD LOSS Minimal. SPECIMENS None. COMPLICATIONS None. INDICATIONS This is a 33-year old female with ulcerative colitis. She presented with perianal abscesses including one that was draining. She has had perianal abscesses in the past that have been drained. Patient is on Humira. She is also on anticoagulation. Anticoagulation was held for two days. Risks and benefits of the procedure were explained and consent was signed. DESCRIPTION OF PROCEDURE Patient was taken to the operating room and placed in the supine position. General anesthesia was administered per the Anesthesia team. Patient was placed in candy-cane stirrups and was prepped and draped in normal sterile fashion. A digital rectal exam was performed. No masses were palpated. Loose stool was returned. On the right, patient had an opening that was draining stool and blood. I expanded this slightly. I used a Q-tip to break up any loculations. On the left, patient had some granulation tissue and at this site there was some pus oozing. I easily opened this area with my finger. This tunneled posteriorly. There was an indurated area posteriorly on the left that corresponded to an abscess on the left found on CT scan. I made a 1 cm incision over this area. There was a pocket that this incision opened up into. This was probed with a Q-tip. Not a lot of pus was returned from this site. The wounds were irrigated on the right. The irrigating fluid entered the external opening of the abscess pocket and then drained out the anus, consistent with a fistula. Appropriate hemostasis was assured. The wounds were packed with strip gauze. Local analgesia was injected. Appropriate dressings were applied. Patient tolerated the procedure well. There were no complications. [facility]
--- NOTE | 2019-02-14 08:46 | General Surgery Progress Note ---
Subjective Progress Notes Subjective doing well s/p i&d Physical Exam Vital Signs Date Time Temp Pulse Resp B/P (MAP) Pulse Ox O2 Delivery O2 Flow Rate FiO2 02/14/19 05:27 97.7 83 20 102/66 (78) 94 Nasal Cannula 1.0 Intake and Output 02/14/19 07:00 Intake Total 2638 ml Balance 2638 ml Intake Oral 1200 ml IV Total 1438 ml # Voids 4 # Bowel Movements 4 General Appearance: No Acute Distress Cardiovascular: Other (reg rate) GI: Other (abd soft) Result Diagram: 02/12/1954002/12/19540 Monitor Interpretation: Normal Sinus Rhythm Assessment and Plan Problems: (1) Antiplatelet or antithrombotic long-term use Status: Chronic Assessment & Plan: HOLD at this time for surgery (2) Immunosuppressed status Status: Chronic Assessment & Plan: Will manage with antibiotics and drainage given immunosuppression status (3) Liver mass Status: Acute Assessment & Plan: New 6-7 mm low attenuation lesion within the right lobe of the liver; Seen on recent CT scan; Will need further evaluation or F/U (4) Depression Status: Chronic (5) Arterial thrombosis Status: Chronic Assessment & Plan: Iliac artery; Will need to resume anticoagulation and antiplatelet therapy (fresh stent) as soon as possible after surgery (6) Ulcerative pancolitis Status: Chronic Assessment & Plan: Followed by GI; Needs to f/u with Colorectal surgeon (7) Chronic anticoagulation Status: Chronic Assessment & Plan: HOLD Eliquis at this time; May need bridging (8) Perirectal abscess Status: Resolved Assessment & Plan: Will manage with antibiotics and drainage given immunosuppression status; NPO after 0800; IVF; Delay surgery due to Eliquis full anticoagulation and no reversal 02/12/19: cont abx. hold anticoag. i&d tomorrow in OR. 02/13/19: abx. npo. i&d today of perianal abscesses. 02/14/19: repack wounds today. home on abx. restart anticoag. f/u [facility] for packing changes. f/u colorectal as scheduled. (9) History of DVT (deep vein thrombosis) Status: Chronic Exam Sepsis Risk: No Definite Risk Problem Qualifiers (1) Depression: Depression Type: unspecified Qualified Codes: F32.9 - Major depressive diso rder, single episode, unspecified TALIA VALIENTE February 14, 2019 08:46
[2019-02-14] MEDS ORDERED: APIXABAN 2.5 MG TABLET PO SCH (09:00)
[2019-02-14] MEDS: DICYCLOMINE HCL 10 MG CAP PO SCH (09:48)
[2019-02-14] MEDS: PAROXETINE HCL 10 MG TABLET PO SCH (09:48)
[2019-02-14] MEDS: FOLIC ACID 1 MG TAB PO SCH (09:48)
[2019-02-14] MEDS ORDERED: MELA3TAB31 PO (11:12)
[2019-02-14] MEDS ORDERED: OMEP-218 PO (11:12)
[2019-02-14] MEDS ORDERED: TRAM-420 PO (12:17)
[2019-02-14] MEDS ORDERED: CIPR-344 PO (12:17)
[2019-02-14] MEDS ORDERED: METR500T15 PO (12:17)
[2019-02-14] MEDS ORDERED: HYDR-654 PO (12:48)
--- NOTE | 2019-02-14 13:01 | Hospitalist Depart ---
Discharge Summary Reason for Hosp/Final Diag: (1) Antiplatelet or antithrombotic long-term use Status: Chronic Hospital Course & Plan: HOLD at this time for surgery (2) Immunosuppressed status Status: Chronic Hospital Course & Plan: Will manage with antibiotics and drainage given immunosuppression status (3) Liver mass Status: Acute Hospital Course & Plan: New 6-7 mm low attenuation lesion within the right lobe of the liver; Seen on recent CT scan; Will need further evaluation or F/U (4) Depression Status: Chronic (5) Arterial thrombosis Status: Chronic Hospital Course & Plan: Iliac artery; Will need to resume anticoagulation and antiplatelet therapy (fresh stent) as soon as possible after surgery (6) Ulcerative pancolitis Status: Chronic Hospital Course & Plan: Followed by GI; Needs to f/u with Colorectal surgeon (7) Chronic anticoagulation Status: Chronic Hospital Course & Plan: HOLD Eliquis at this time; May need bridging (8) Perirectal abscess Status: Resolved Hospital Course & Plan: Will manage with antibiotics and drainage given immunosuppression status; NPO after 0800; IVF; Delay surgery due to Eliquis full anticoagulation and no reversal 02/12/19: cont abx. hold anticoag. i&d tomorrow in OR. 02/13/19: abx. npo. i&d today of perianal abscesses. 02/14/19: repack wounds today. home on abx. restart anticoag. f/u [facility] for packing changes. f/u colorectal as scheduled. i repacked wound around 1215. will d/c home on po abx. repack wound tomorrow in office. (9) History of DVT (deep vein thrombosis) Status: Chronic Departure Weight (Pounds): 126 Weight (Ounces): 8.0 Result Diagram: 02/12/1942 02/12/19540 Condition: Improved Discharge: Home Discharge Instructions Home Meds Active Scripts Hydrocodone Bit/Acetaminophen (NORCO 7.5-325 TABLET) 1 Each Tablet, 1 EACH PO Q6H PRN for PAIN, #30 TAB Prov:TALIA VALIENTE 02/14/19 Ciprofloxacin Hcl 500 Mg Tab (CIPRO 500 MG TAB) 500 Mg Tablet, 500 MG PO BID for 7 Days, #14 TAB Prov:TALIA VALIENTE 5/23/19 Metronidazole (METRONIDAZOLE) 500 Mg Tablet, 500 MG PO TID for 7 Days, #21 TAB Prov:TALIA VALIENTE 02/14/19 Paroxetine Hcl (PAROXETINE HCL) 10 Mg Tablet, 10 MG PO QDAY, #30 Prov:ABELINO WEBSTER MD 01/28/19 Reported Medications Omeprazole Magnesium (PRILOSEC OTC) 20 Mg Tablet.dr, 1 TAB PO QDAY PRN for HEARTBURN, TAB 02/14/19 Melatonin (MELATONIN) 3 Mg Tablet, 2 TAB PO QHS PRN for INSOMNIA 02/14/19 Hydrocodone Bit/Acetaminophen (HYDROCODON-ACETAMINOPHEN 5-325) 1 Each Tablet, 1- 2 TAB PO Q6H PRN for PAIN 02/13/19 Diclofenac Sodium 1% Gel (VOLTAREN 1% GEL) 100 Gm Gel..gram., 3 G TOP Q6H PRN for PAIN 02/13/19 Nortriptyline Hcl (NORTRIPTYLINE HCL) 25 Mg Cap, 25 MG PO HS, CAP 02/11/19 Nortriptyline Hcl (NORTRIPTYLINE HCL) 10 Mg Cap, 10 MG PO HS, CAP 02/11/19 Dicyclomine Hcl (DICYCLOMINE HCL) 10 Mg Capsule, 20 MG PO TID, CAPSULE 01/25/19 Biotin (BIOTIN) 5 Mg Capsule, 5 MG PO QDAY, CAPSULE 11/07/18 Folic Acid (FOLIC ACID) 0.4 Mg Tablet, 0.4 MG PO DAILY 11/07/18 Apixaban (ELIQUIS) 5 Mg Tablet, 5 MG PO BID 11/06/18 Aspirin (ASPIR 81) 81 Mg Tablet.dr, 81 MG PO QDAY, TAB 11/06/18 Clopidogrel Bisulfate (PLAVIX) 75 Mg Tablet, 1 TAB PO QDAY, TAB 11/06/18 Adalimumab (HUMIRA) 40 Mg/0.8 Ml Pen.ij.kit, 40 MG SQ qfriday 07/31/18 Discontinued Reported Medications Nortriptyline Hcl (NORTRIPTYLINE HCL) 10 Mg Cap, 10 MG PO HS, CAP 02/11/19 Mesalamine (MESALAMINE) 4 Gm/60 Ml Enema, 4 GM RC BID 01/28/19 Mesalamine (Mesalamine) 1.2 Gram Tablet.dr, 1 CAP PO TID 01/28/19 Discontinued Scripts Hydrocodone Bit/Acetaminophen (HYDROCODON-ACETAMINOPHEN 5-325) 1 Each Tablet, 1- 2 EACH PO Q6H PRN for PAIN, #20 Prov:ABELINO WEBSTER MD 01/28/19 Prednisone 10 Mg Tab (PREDNISONE 10 MG TAB) 10 Mg Tablet, 5-60 MG PO QDAY, #43 TAB 6 pills daily for 2 days, then 5 for 2 days, 4 for 2 days, 3 for 2 days, 2 for 2 days, 1 for 2 days, 1/2 for 2 days Prov:ABELION WEBSTER MD 01/28/19 Diet: Regular Activity: As Tolerated Special Instructions: wound care as instructed f/u dr. rudolph [facility] tomorrow for wound care Venous Thromboembolism Antithrombotics Is Pt On Any Antithrombotics?: Yes Problem Qualifiers (1) Depression: Depression Type: unspecified Qualified Codes: F32.9 - Major depressive diso rder, single episode, unspecified TALIA VALIENTE February 14, 2019 13:01
== END 2019-02-14 13:45 | disposition home or self-care (01) | DRG 345 ==
LOC: ER 09:48 → MED 12:58
PROVIDERS: ADMIT Surgery; ATTEND Surgery
PROC: 0D9P7ZZ Drainage of Rectum, Via Natural or Artificial Opening (ICD-10-PCS; principal; 2019-02-13 12:23)
DX: K51.013 Ulcerative (chronic) pancolitis with fistula (principal); I74.5 Embolism and thrombosis of iliac artery; F32.9 Major depressive disorder, single episode, unspecified; D89.9 Disorder involving the immune mechanism, unspecified; R16.0 Hepatomegaly, not elsewhere classified; Z79.01 Long term (current) use of anticoagulants
CPT/HCPCS: 36415; 74177; 81001; 82040; 82247; 82310; 82374; 82435; 82565; 82947; 83605; 83690; 83735; 84075; 84132; 84155; 84295; 84450; 84460; 84520; 84703; 85025; 85610; 85651; 85730; 86140; 87040; 96361; 96365; 96375; 96376; 99284; J1100; J1170; J2250; J2405; J2543; J2704; J3010; J3480; J7030; J7050; Q9967

== ENCOUNTER → 2019-02-19 | Outpatient (CLI) | payer BC ==
[2018-11-07 13:55] VITALS: BMI 20.2
[~2019-02-19] MED LIST changes: +CIPR-344 PO; +DICL100G39 TOP; +HYDR-385 PO; +HYDR-654 PO; +MELA3TAB31 PO; +METR500T15 PO; +OMEP-218 PO; +TRAM-420 PO
[2019-02-19 11:09] LABS: PLATELET COUNT, AUTOMATED 661 K/uL (150-450)
== END ==
LOC: LAB 10:45
PROVIDERS: ATTEND Surgery
DX: D64.9 Anemia, unspecified (principal); K61.1 Rectal abscess
CPT/HCPCS: 36415; 85025

== ENCOUNTER 2019-02-21 01:14 | Day surgery (SDC) | payer BC ==
[2018-11-07 13:55] VITALS: Ht 162.6 cm; Wt 53.1 kg
[~2019-02-21] VITALS: Ht 162.6 cm; Wt 53.1 kg
[2019-02-21] MEDS ORDERED: FAMOTIDINE 20 MG TAB PO ONE (06:50)
[2019-02-21 07:06] VITALS: BP 100/58
[2019-02-21] MEDS ORDERED: LIDOCAINE/SOD BICARB 8.4% SYR ID ONE (07:10)
[2019-02-21] MEDS ORDERED: NORMOSOL R SOLN(*) 1000 ML BAG 1,000 ML IV PRN (07:10)
[2019-02-21] MEDS ORDERED: LEVOFLOXACIN/D5W 750 MG/150 ML 150 ML IVPB ONE (07:10)
[2019-02-21] MEDS ORDERED: metroNIDAZOLE* 500MG/100ML BAG 100 ML IVPB ONE (07:10)
[2019-02-21] MEDS ORDERED: MIDAZOLAM 2 MG/2 ML VIAL IVP PRN (07:10)
[2019-02-21] MEDS ORDERED: PROPOFOL EMUL(*) 10MG/ML 20 ML 20 ML ONE (07:42)
[2019-02-21] MEDS ORDERED: LIDOCAINE MPF 1% 5 ML VIAL ONE (07:42)
[2019-02-21] MEDS ORDERED: DEXAMETHASONE SOD PHOS 10MG/ML ONE (07:42)
[2019-02-21] MEDS ORDERED: ONDANSETRON 4 MG/2 ML VIAL ONE (07:42)
[2019-02-21] MEDS ORDERED: fentaNYL CITR 100 MCG/2 ML AMP ONE ×3 (07:43→09:24)
[2019-02-21] MEDS ORDERED: KETAMINE HCL 200 MG/20 ML MDV ONE (07:44)
[2019-02-21] MEDS ORDERED: HYDROGEN PEROXID 3% 473 ML BTL TP ONE (07:44)
[2019-02-21] MEDS ORDERED: BUPIVACAINE/EPI 0.5% 50ML VIAL INFIL ONE (07:46)
[2019-02-21] MEDS ORDERED: LIDOCAINE 2% JELLY 30 ML TUBE ONE (07:46)
[2019-02-21] MEDS ORDERED: HALOPERIDOL LACT 5 MG/ML VIAL IM ONE (07:59)
--- NOTE | 2019-02-21 08:46 | Short(Outpt) Discharge Summary ---
Discharge Summary Reason for Hosp/Final Diag: (1) Perianal fistula Status: Chronic Hospital Course & Plan: pt presented for eua and seton placement. she tolerated the procedure well. she will be discharged home when criteria met. Departure Discharge to: Home Discharge Instructions Home Meds Active Scripts Hydrocodone Bit/Acetaminophen (NORCO 7.5-325 TABLET) 1 Each Tablet, 1 EACH PO Q6H PRN for PAIN, #30 TAB Prov:TALIA VALIENTE 02/14/19 Ciprofloxacin Hcl 500 Mg Tab (CIPRO 500 MG TAB) 500 Mg Tablet, 500 MG PO BID for 7 Days, #14 TAB Prov:TALIA VALIENTE 02/14/19 Metronidazole (METRONIDAZOLE) 500 Mg Tablet, 500 MG PO TID for 7 Days, #21 TAB Prov:TALIA VALIENTE 02/14/19 Paroxetine Hcl (PAROXETINE HCL) 10 Mg Tablet, 10 MG PO QDAY, #30 Prov:ABELINO WEBSTER MD 01/28/19 Reported Medications Melatonin (MELATONIN) 3 Mg Tablet, 2 TAB PO QHS PRN for INSOMNIA 02/14/19 Diclofenac Sodium 1% Gel (VOLTAREN 1% GEL) 100 Gm Gel..gram., 3 G TOP Q6H PRN for PAIN 02/13/19 Nortriptyline Hcl (NORTRIPTYLINE HCL) 25 Mg Cap, 25 MG PO HS, CAP 02/11/19 Nortriptyline Hcl (NORTRIPTYLINE HCL) 10 Mg Cap, 10 MG PO HS, CAP 02/11/19 Dicyclomine Hcl (DICYCLOMINE HCL) 10 Mg Capsule, 20 MG PO TID, CAPSULE 01/25/19 Biotin (BIOTIN) 5 Mg Capsule, 5 MG PO QDAY, CAPSULE 11/07/18 Apixaban (ELIQUIS) 5 Mg Tablet, 5 MG PO BID 11/06/18 Aspirin (ASPIR 81) 81 Mg Tablet.dr, 81 MG PO QDAY, TAB 11/06/18 Clopidogrel Bisulfate (PLAVIX) 75 Mg Tablet, 1 TAB PO QDAY, TAB 11/06/18 Adalimumab (HUMIRA) 40 Mg/0.8 Ml Pen.ij.kit, 40 MG SQ qfriday 07/31/18 Discontinued Reported Medications Omeprazole Magnesium (PRILOSEC OTC) 20 Mg Tablet.dr, 1 TAB PO QDAY PRN for HEARTBURN, TAB 02/14/19 Hydrocodone Bit/Acetaminophen (HYDROCODON-ACETAMINOPHEN 5-325) 1 Each Tablet, 1- 2 TAB PO Q6H PRN for PAIN 02/13/19 Folic Acid (FOLIC ACID) 0.4 Mg Tablet, 0.4 MG PO DAILY 11/07/18 Diet: Regular Activity: As Tolerated Special Instructions: remove gauze packing tomorrow, then do not repack. leave rubber setons in place. sitz baths ok. f/u dr. rudolph valiente 2 wks. TALIA VALIENTE February 21, 2019 08:46
--- NOTE | 2019-02-21 08:50 | Post Operative Progress Note ---
Post Operative Progress Note Date: February 21, 2019 Time: 08:46 Surgeon: dr. rudolph valiente #[id number] Grain Origination Specialist: none Anesthesia: gen, local Pre-Op Diagnosis: perianal fistula Post-Op Diagnosis: same Procedure(s): eua seton placement Specimen Removed:(May be N/A): perianal wound tissue Complications: none Estimated Blood Loss: minimal Date OP Note Dictated: February 21, 2019 Time OP Note Dictated: 08:47 TALIA VALIENTE February 21, 2019 08:50
--- NOTE | 2019-02-21 09:04 | OPERATIVE REPORT 1 ---
EVENT DATE: February 21, 2019 SURGEON: Raymond Vaca MD ANESTHESIOLOGIST: Brenton Magaña MD ANESTHESIA: General with local. 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 PREOPERATIVE DIAGNOSIS Perianal fistula. POSTOPERATIVE DIAGNOSIS Perianal fistula. PROCEDURE PERFORMED Exam under anesthesia and seton placement. FLUIDS IV crystalloids. ESTIMATED BLOOD LOSS Minimal. SPECIMENS Left anterior perianal wound tissue. COMPLICATIONS None. INDICATIONS This is a 33-year old female with ulcerative colitis with chronic perianal fistulas and abscesses. The purpose of the procedure today is to identify the fistula and place a seton was well as further investigate the other perianal wounds. Risks and benefits of the procedure were explained and consent was signed. DESCRIPTION OF PROCEDURE The patient was taken to the operating room and placed in the supine position. General anesthesia was administered per the Anesthesia team. The patient was placed in stirrups and prepped and draped in normal sterile fashion. Exam under anesthesia was performed and there was some inflamed tissue in the posterior aspect of the anal canal. Q-tip was used to probe the wounds. There was tunneling on both wounds on the left. On the right, peroxide was used to identify the location of the fistula, which did have the internal opening in the posterior aspect of the distal anal canal. Fistula probe was passed through the external beam on the right and a rubber seton was placed and secured to itself. On the left, peroxide was used but no fistula was identified. These two wounds did communicate and a rubber drain was placed and tied to itself. Local analgesia was injected. Appropriate dressings were applied. The patient tolerated the procedure well and there were no complications. [facility]
[2019-02-21] MEDS ORDERED: HYDR-654 PO (09:08)
[2019-02-21] MEDS ORDERED: APAP/HYDROCODONE 325/5 TAB ONE (09:54)
[2019-02-21 10:00] VITALS: BP 112/65
[2019-02-21 10:04] VITALS: BP 111/73
== END 2019-02-21 09:45 | disposition home or self-care (01) ==
LOC: OR 01:14
PROVIDERS: ATTEND Surgery
DX: K60.3 Anal fistula (principal)
CPT/HCPCS: 46020; 81025; 88305; J1100; J1630; J1956; J2001; J2250; J2405; J2704; J3010; J3490

== ENCOUNTER 2019-02-27 09:30 | Outpatient (RCR) | payer BC ==
[2018-11-07 13:55] VITALS: BMI 20.2
[2018-12-03 10:23] VITALS: BP 121/72
[2018-12-03] MEDS: NS(*) 0.9% 100 ML BAG 100 ML IVPB PRN (10:41)
[2018-12-03] MEDS: LIDOCAINE/SOD BICARB 8.4% SYR ID PRN (10:41)
[2019-02-20 08:37] VITALS: BP 104/79
[2019-02-20] MEDS: LIDOCAINE/SOD BICARB 8.4% SYR ID PRN (09:10)
[2019-02-20] MEDS: NS(*) 0.9% 100 ML BAG 100 ML IVPB PRN (09:10)
[2019-02-20] MEDS: FERRIC CARBOXY 750 MG SDV 750 MG in NS(*) 0.9% 250 ML BAG 250 ML IVPB PRN (09:10)
[2019-02-20 09:16] LABS: PLATELET COUNT, AUTOMATED 593 K/uL (150-450)
[2019-02-20 09:31] VITALS: BP 102/65
[~2019-02-27 09:30] MED LIST changes: +DEXTROSE 5%(*) 100 ML BAG 100 ML IVPB PRN; +IRON SUCROSE IVPB ONE; +NS 0.9% IVPB ONE
[2019-02-27] MEDS: LIDOCAINE/SOD BICARB 8.4% SYR ID PRN (10:43)
[2019-02-27] MEDS: FERRIC CARBOXY 750 MG SDV 750 MG in NS(*) 0.9% 250 ML BAG 250 ML IVPB PRN (10:43)
[2019-02-27] MEDS: NS(*) 0.9% 100 ML BAG 100 ML IVPB PRN (10:44)
[2019-02-27 10:52] VITALS: BP 116/84
[2019-02-27 11:26] VITALS: BP 102/69
== END 2019-02-28 ==
LOC: SPU 09:30
PROVIDERS: ATTEND Nurse Practitioner Family
DX: D47.3 Essential (hemorrhagic) thrombocythemia (principal); K51.90 Ulcerative colitis, unspecified, without complications; D50.9 Iron deficiency anemia, unspecified
CPT/HCPCS: 85025; 96365; J1439; J7050; J1756

== ENCOUNTER → 2019-02-27 | Outpatient (CLI) | payer BC ==
[2018-11-07 13:55] VITALS: BMI 20.2
[2019-02-27 11:48] LABS: PLATELET COUNT, AUTOMATED 779 K/uL (150-450)
== END ==
LOC: SPU 09:55
DX: Z79.899 Other long term (current) drug therapy (principal)
CPT/HCPCS: 36415; 82040; 82247; 82310; 82374; 82435; 82565; 82947; 84075; 84132; 84155; 84295; 84450; 84460; 84520; 85025; 86480

== ENCOUNTER 2019-03-13 09:30 | Outpatient (RCR) | payer BC ==
[2018-11-07 13:55] VITALS: BMI 20.2
[2019-03-08] MEDS: NS(*) 0.9% 100 ML BAG 100 ML IVPB PRN (09:04)
[2019-03-08] MEDS: LIDOCAINE/SOD BICARB 8.4% SYR ID PRN (09:04)
[2019-03-08 09:08] VITALS: BP 108/85
[2019-03-08 09:11] LABS: PLATELET COUNT, AUTOMATED 517 K/uL (150-450)
[2019-03-08 09:39] VITALS: BP 112/63
[~2019-03-13 09:30] MED LIST changes: +FERRIC CARBOXY 750 MG SDV 750 MG in NS(*) 0.9% 250 ML BAG 250 ML IVPB ONE; -IRON SUCROSE IVPB ONE; -NS 0.9% IVPB ONE
[2019-03-13 10:41] VITALS: BP 116/79
[2019-03-13] MEDS ORDERED: FERRIC CARBOXY 750 MG SDV 750 MG in NS(*) 0.9% 250 ML BAG 250 ML IVPB ONE (11:00)
[2019-03-13] MEDS: LIDOCAINE/SOD BICARB 8.4% SYR ID PRN (11:12)
[2019-03-13 11:13] LABS: PLATELET COUNT, AUTOMATED 434 K/uL (150-450)
[2019-03-13] MEDS: NS(*) 0.9% 100 ML BAG 100 ML IVPB PRN (11:13)
[2019-03-24] MEDS ORDERED: CLIN300C99 PO (22:41)
== END 2019-03-25 13:23 | disposition home or self-care (01) ==
LOC: SPU 09:30
PROVIDERS: ATTEND Nurse Practitioner Family
DX: D50.9 Iron deficiency anemia, unspecified (principal); K51.90 Ulcerative colitis, unspecified, without complications
CPT/HCPCS: 85025; 96365; J1439; J7050; 96374

== ENCOUNTER → 2019-03-14 | Outpatient (CLI) | payer BC ==
[2018-11-07 13:55] VITALS: BMI 20.2
[~2019-03-14] MED LIST changes: -DEXTROSE 5%(*) 100 ML BAG 100 ML IVPB PRN; -FERRIC CARBOXY 750 MG SDV 750 MG in NS(*) 0.9% 250 ML BAG 250 ML IVPB ONE
== END ==
LOC: LAB 12:18
PROVIDERS: ATTEND Orthopaedic Surgery
DX: Z13.0 Encounter for screening for diseases of the blood and blood-forming organs and certain disorders involving the immune mechanism (principal)
CPT/HCPCS: 36415; 81241

== ENCOUNTER 2019-03-24 16:53 | Emergency (ER) | payer BC ==
[2018-11-07 13:55] VITALS: Wt 54.4 kg
[~2019-03-24 16:53] MED LIST changes: -CLIN300C99 PO
--- NOTE | 2019-03-24 17:04 | ER Report ---
History and Physical Time Seen By MD: 17:02 HPI/ROS CHIEF COMPLAINT: Pain to right buttock HISTORY OF PRESENT ILLNESS: 33-year-old female patient presents to emergency room with complaint of pain to the right buttock. Patient states that she has been having pain for the past couple days. She states is significant only worse today. She states that she notices especially after she had a incontinent bowel movement. She states that she has tenderness especially when wiping. She states she's noticed that there is a bump that is on her right buttock. She denies having any fevers or chills. Patient did have a knee surgery yesterday. At that time they tacked down her meniscus and remove some hardware. Patient states that her knee pain is tolerable and see has been well managed with her Percocet. REVIEW OF SYSTEMS: Respiratory: No cough, no dyspnea. Cardiovascular: No chest pain, no palpitations. Gastrointestinal: No vomiting, no abdominal pain. Musculoskeletal: No back pain. Allergies: Coded Allergies: amoxicillin (Verified Allergy, Unknown, 03/24/19) CDIFF tramadol (Verified Allergy, Unknown, 03/24/19) SEIZURES Home Meds Active Scripts Hydrocodone Bit/Acetaminophen (NORCO 7.5-325 TABLET) 1 Each Tablet, 1 EACH PO Q8H PRN for PAIN, #10 TAB Prov:TALIA VACA P 02/21/19 Hydrocodone Bit/Acetaminophen (NORCO 7.5-325 TABLET) 1 Each Tablet, 1 EACH PO Q 6H PRN for PAIN, #30 TAB Prov:TALIA VACA P 02/14/19 Ciprofloxacin Hcl 500 Mg Tab (CIPRO 500 MG TAB) 500 Mg Tablet, 500 MG PO BID for 7 Days, #14 TAB Prov:TALIA VACA P 02/14/19 Metronidazole (METRONIDAZOLE) 500 Mg Tablet, 500 MG PO TID for 7 Days, #21 TAB Prov:TALIA VACA 02/14/19 Paroxetine Hcl (PAROXETINE HCL) 10 Mg Tablet, 10 MG PO QDAY, #30 Prov:ABELINO WEBSTER MD 01/28/19 Reported Medications Melatonin (MELATONIN) 3 Mg Tablet, 2 TAB PO QHS PRN for INSOMNIA 02/14/19 Diclofenac Sodium 1% Gel (VOLTAREN 1% GEL) 100 Gm Gel..gram., 3 G TOP Q6H PRN for PAIN 02/13/19 Nortriptyline Hcl (NORTRIPTYLINE HCL) 25 Mg Cap, 25 MG PO HS, CAP 02/11/19 Nortriptyline Hcl (NORTRIPTYLINE HCL) 10 Mg Cap, 10 MG PO HS, CAP 02/11/19 Dicyclomine Hcl (DICYCLOMINE HCL) 10 Mg Capsule, 20 MG PO TID, CAPSULE 01/25/19 Biotin (BIOTIN) 5 Mg Capsule, 5 MG PO QDAY, CAPSULE 11/07/18 Apixaban (ELIQUIS) 5 Mg Tablet, 5 MG PO BID 11/06/18 Aspirin (ASPIR 81) 81 Mg Tablet.dr, 81 MG PO QDAY, TAB 11/06/18 Clopidogrel Bisulfate (PLAVIX) 75 Mg Tablet, 1 TAB PO QDAY, TAB 11/06/18 Adalimumab (HUMIRA) 40 Mg/0.8 Ml Pen.ij.kit, 40 MG SQ qfriday 07/31/18 Past Medical/Surgical History Patient has a past medical history of seizures, 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 Patient has surgical history of left anterior cruciate ligament repair. Patient has a family medical history of cancer. Reviewed Nurses Notes: Yes Hx Smoking: No Smoking Status: Never Smoker Hx Substance Use Disorder: No Hx Alcohol Use: Yes Constitutional Vital Sign - Last 24 Hours 03/24/19 03/24/19 03/24/19 03/24/19 16:53 17:02 17:04 17:15 Temp 100.1 Pulse 105 105 Resp 14 B/P (MAP) 127/79 (95) 120/79 (93) 120/79 111/82 (92) Pulse Ox 94 93 O2 Delivery Room Air 03/24/19 03/24/19 03/24/19 03/24/19 17:23 17:30 17:45 17:53 Pulse 110 105 B/P (MAP) 118/85 (96) 99/59 (72) Pulse Ox 93 03/24/19 03/24/19 03/24/19 03/24/19 18:00 18:05 19:00 19:05 Pulse 98 98 B/P (MAP) 113/75 (88) 135/95 (108) Pulse Ox 92 94 6/30/19 03/24/19 03/24/19 03/24/19 19:10 19:40 20:00 20:10 Pulse 100 98 103 Resp 9 23 B/P (MAP) 122/90 (101) Pulse Ox 81 97 92 03/24/19 03/24/19 03/24/19 03/24/19 20:15 20:30 20:45 21:00 Pulse 103 100 99 101 Resp 16 15 8 7 B/P (MAP) 113/90 (98) 119/90 (100) Pulse Ox 92 99 95 98 03/24/19 03/24/19 03/24/19 03/24/19 21:15 21:27 21:28 21:30 Pulse 101 101 Resp 18 20 B/P (MAP) 96/75 (82) 106/76 (86) 96/74 (81) Pulse Ox 99 03/24/19 03/24/19 03/24/19 21:35 21:40 21:45 Pulse 94 Resp 17 B/P (MAP) 103/83 (90) 99/82 (88) 105/81 (89) Pulse Ox 100 Physical Exam General Appearance: The patient is alert, has no immediate need for airway protection and no current signs of toxicity. Respiratory: Chest is non tender, lungs are clear to auscultation. Cardiac: regular rate and rhythm Gastrointestinal: Abdomen is soft and non tender, no masses, bowel sounds normal. Musculoskeletal: Neck: Neck is supple and non tender. Extremities have full range of motion and are non tender. Skin: No rashes or lesions. Abscess noted to the right buttock, tender to touch. With palpation was able to express out purulent drainage. DIFFERENTIAL DIAGNOSIS: After history and physical exam differential diagnosis was considered for abscess, tracking from fistula. Medical Decision Making Data Points Result Diagram: 03/24/19180803/24/191808 Laboratory Hematology Test 03/24/19 18:09 Red Blood Count 4.22 M/uL (4.17-5.56) Mean Corpuscular Volume 89.0 fL (80.0-96.0) Mean Corpuscular Hemoglobin 29.8 pg (26.0-33.0) Mean Corpuscular Hemoglobin Concent 33.5 g/dL (32.0-36.0) Red Cell Distribution Width 29.0 % (11.5-14.5) Mean Platelet Volume 6.3 fL (7.2-11.1) Neutrophils (%) (Auto) 73.7 % (39.4-72.5) Lymphocytes (%) (Auto) 15.9 % (17.6-49.6) Monocytes (%) (Auto) 7.5 % (4.1-12.4) Eosinophils (%) (Auto) 2.1 % (0.4-6.7) Basophils (%) (Auto) 0.8 % (0.3-1.4) Nucleated RBC Relative Count (auto) 0.0 /100WBC Neutrophils # (Auto) 5.6 K/uL (2.0-7.4) Lymphocytes # (Auto) 1.2 K/uL (1.3-3.6) Monocytes # (Auto) 0.6 K/uL (0.3-1.0) Eosinophils # (Auto) 0.2 K/uL (0.0-0.5) Basophils # (Auto) 0.1 K/uL (0.0-0.1) Nucleated RBC Absolute Count (auto) 0.00 K/uL Peripheral Blood Smear Yes Y/N Sodium Level 136 mmol/L (137-145) Potassium Level 4.0 mmol/L (3.5-5.0) Chloride Level 101 mmol/L (98-107) Carbon Dioxide Level 28 mmol/L (22-31) Blood Urea Nitrogen 12 mg/dl (7-18) Creatinine 0.60 mg/dl (0.52-1.04) Glomerular Filtration Rate Calc > 60.0 Random Glucose 90 mg/dl (75-110) Calcium Level 8.6 mg/dl (8.4-10.2) Total Bilirubin 0.2 mg/dl (0.2-1.3) Aspartate Amino Transf (AST/SGOT) 22 U/L (0-35) Alanine Aminotransferase (ALT/SGPT) 35 U/L (0-56) Alkaline Phosphatase 138 U/L (0-126) Total Protein 6.7 g/dl (6.3-8.2) Albumin 3.3 g/dl (3.5-5.0) Chemistry Test 03/24/19 18:09 White Blood Count 7.6 k/uL (4.5-11.0) Red Blood Count 4.22 M/uL (4.17-5.56) Hemoglobin 12.6 g/dL (12.0-16.0) Hematocrit 37.5 % (34.0-47.0) Mean Corpuscular Volume 89.0 fL (80.0-96.0) Mean Corpuscular Hemoglobin 29.8 pg (26.0-33.0) Mean Corpuscular Hemoglobin Concent 33.5 g/dL (32.0-36.0) Red Cell Distribution Width 29.0 % (11.5-14.5) Platelet Count 404 K/uL (150-450) Mean Platelet Volume 6.3 fL (7.2-11.1) Neutrophils (%) (Auto) 73.7 % (39.4-72.5) Lymphocytes (%) (Auto) 15.9 % (17.6-49.6) Monocytes (%) (Auto) 7.5 % (4.1-12.4) Eosinophils (%) (Auto) 2.1 % (0.4-6.7) Basophils (%) (Auto) 0.8 % (0.3-1.4) Nucleated RBC Relative Count (auto) 0.0 /100WBC Neutrophils # (Auto) 5.6 K/uL (2.0-7.4) Lymphocytes # (Auto) 1.2 K/uL (1.3-3.6) Monocytes # (Auto) 0.6 K/uL (0.3-1.0) Eosinophils # (Auto) 0.2 K/uL (0.0-0.5) Basophils # (Auto) 0.1 K/uL (0.0-0.1) Nucleated RBC Absolute Count (auto) 0.00 K/uL Peripheral Blood Smear Yes Y/N Glomerular Filtration Rate Calc > 60.0 Calcium Level 8.6 mg/dl (8.4-10.2) Total Bilirubin 0.2 mg/dl (0.2-1.3) Aspartate Amino Transf (AST/SGOT) 22 U/L (0-35) Alanine Aminotransferase (ALT/SGPT) 35 U/L (0-56) Alkaline Phosphatase 138 U/L (0-126) Total Protein 6.7 g/dl (6.3-8.2) Albumin 3.3 g/dl (3.5-5.0) EKG/Imaging Imaging EXAMINATION: CT pelvis with IV contrast HISTORY: Rectal pain. Abscess, fistula. TECHNIQUE: Axial CT images of the pelvis were obtained with IV contrast, with coronal and sagittal 2D reconstructed images. One of the following dose optimization techniques was utilized in the performance of this exam: Automated exposure control; adjustment of the mA and/or kV according to the patient's size; or use of an iterative reconstruction technique. Specific details can be referenced in the facility's radiology CT exam operational policy. Contrast: 75 mL of IV Isovue-370. COMPARISON: 02/11/2019. FINDINGS: Bowel and peritoneum: There is persistent wall thickening and enhancement along the sigmoid colon and rectum compatible with active inflammation from the patient's known inflammatory bowel disease. There is a large amount of stool along the partially visualized right and transverse colon. Imaged small bowel loops are normal in caliber. No free fluid in the pelvis. Complex perianal fistula disease again noted. Since the prior exam there has been placement of two setons. One seton is located along the high right aspect of the anal sphincter and the other seton is located along the lower left aspect of the anal sphincter. Marked improvement in the prior perianal abscesses in this region. No significant new or progressive undrained perianal abscess. No perineal soft tissue gas. Pelvic structures: The urinary bladder is unremarkable. IUD in place along the central uterus. No large adnexal cyst in the pelvis. Vessels: Patent vascular stent along the left common iliac vein. Pelvic lymph node assessment: Negative. Musculoskeletal/body wall: Visualized osseous structures appear intact. IMPRESSION: 1. There is persistent moderate wall thickening and enhancement along the sigmoid colon and rectum, compatible with active inflammation related to the patient's known inflammatory bowel disease. 2. Large amount of stool along partially visualized segments of the right and transverse colon, suggesting constipation. 3. 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 Marked improvement in the prior perianal abscesses without any significant undrained perianal abscess on the current exam. Report Dictated By: Anoop Pimentel MD at 03/24/2019 6:48 PM Report E-Signed By: Anoop Pimentel MD at 03/24/2019 7:01 PM ED Course/Re-evaluation ED Course Patient was admitted to an exam room, history and physical were obtained. Differential diagnoses were considered. On examination lungs are clear, heart is regular, abdomen soft nontender, patient does have a abscess noted on the right buttock. Is tender to touch. When palpated I do get a purulent drainage. I discussed the case with Dr. Vaca, surgeon. He recommended getting a CT scan of the pelvis to further evaluate the abscess. A CBC and CMP were done as we are going to use IV contrast. The does show no acute findings. Patient had a normal white count with a very mild left shift. CT scan showed no discernible fluid collection. I discussed this with Dr. Vaca. He recommended that we go ahead and open up and drain it. I discussed this with patient who verbalized understanding and agreement. States she is very anxious as well to do conscious sedation. Her mother however did not feel comfortable with me performing the procedure. She states that she would prefer the patient be admitted to the hospital. She also stated that she had very complex medical problems and that performing an incision drainage may result in her becoming septic and dying. She requested to speak with Dr. Vaca. I did speak with Dr. Vaca, he did come do wn to the emergency room and his visit with the patient and her mother. He ultimately decided that he was going to do the incision drainage. Conscious sedation was done as described below. Patient tolerated procedure well. She requests further pain medication after the procedure. We did give her an additional dose of morphine, and then transition her to by mouth medication when she is more awake. Patient tolerated by mouth pain medication well. We will go ahead and discharge her home at this time. Patient and her mother verbalized understanding and agreement with plan. Decision to Disposition Date: Mar 24, 2019 Decision to Disposition Time: 22:38 Depart Departure Latest Vital Signs Vital Signs Date Time Temp Pulse Resp B/P (MAP) Pulse Ox O2 Delivery O2 Flow Rate FiO2 03/24/19 21:45 94 17 105/81 (89) 100 03/24/19 17:04 100.1 Room Air Impression: Primary Impression: Perirectal abscess Condition: Improved Disposition: HOME OR SELF-CARE Referrals: [facility] [employer] [facility], [facility] (PCP) New Scripts Clindamycin Hcl (CLINDAMYCIN HCL) 300 Mg Capsule 300 MG PO Q6H, #8 CAPSULE Prov: ISAMARMAXINE BENJAMÍN 03/24/19 Patient Instructions: Abscess (ED) Additional Instructions: Limit activity by pain. Get plenty of rest. Continue with your medications. We are going to add 2 more days to your Clindamycin. Follow up with Dr. Vaca with any concerns. Follow up with your Colorectal surgeon as previously scheduled. Return to the ER if condition worsens. MAXINE PENN Mar 24, 2019 17:04
[2019-03-24] MEDS ORDERED: IOPAMIDOL 76% 100 ML INFUS BTL 100 ML ONE (18:02)
[2019-03-24 18:34] LABS: PLATELET COUNT, AUTOMATED 404 K/uL (150-450)
[2019-03-24] MEDS ORDERED: MORPHINE 4 MG/ML SDV IVP ONE ×3 (19:00→21:55)
--- NOTE | 2019-03-24 19:07 | RADIOLOGY IMAGING REPORT ---
FACILITY: [facility] PATIENT NAME: Rika Esteban : 1985 MR: [id number] V: [id number] EXAM DATE: ORDERING PHYSICIAN: MAXINE PENN [place]CHNOLOG[place] [facility] [place]ika Esteban : 1985 Visit/Account:[id number] Date of Sevice: 03/24/2019 EXAMINATION: CT pelvis with IV contrast HISTORY: Rectal pain. Abscess, fistula. TECHNIQUE: Axial CT images of the pelvis were obtained with IV contrast, with coronal and sagittal 2D reconstructed images. One of the following dose optimization techniques was utilized in the performance of this exam: Autom ated exposure control; adjustment of the mA and/or kV according to the patient's size; or use of an i terative reconstruction technique. Specific details can be referenced in the facility's radiology C T exam operational policy. Contrast: 75 mL of IV Isovue-370. COMPARISON: 02/11/2019. FINDINGS: Bowel and peritoneum: There is persistent wall thickening and enhancement along the sigmoid colon and rectum compatible with active inflammation from the patient's known inflammatory bowel disease. Ther e is a large amount of stool along the partially visualized right and transverse colon. Imaged small bowel loops are normal in caliber. No free fluid in the pelvis. Complex perianal fistula disease again noted. Since the prior exam there has been placement of two se tons. One seton is located along the high right aspect of the anal sphincter and the other seton is l ocated along the lower left aspect of the anal sphincter. Marked improvement in the prior perianal ab scesses in this region. No significant new or progressive undrained perianal abscess. No perineal sof t tissue gas. Pelvic structures: The urinary bladder is unremarkable. IUD in place along the central uterus. No large adnexal cyst in the pelvis. Vessels: Patent vascular stent along the left common iliac vein. Pelvic lymph node assessment: Negative. Musculoskeletal/body wall: Visualized osseous structures appear intact. IMPRESSION: 1. There is persistent moderate wall thickening and enhancement along the sigmoid colon and rectum, c ompatible with active inflammation related to the patient's known inflammatory bowel disease. 2. Large amount of stool along partially visualized segments of the right and transverse colon, sugge sting constipation. 3. 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 Marked improvem ent in the prior perianal abscesses without any significant undrained perianal abscess on the current exam. Report Dictated By: Anoop Pimentel MD at 03/24/2019 6:48 PM Report E-Signed By: Anoop Pimentel MD at 03/24/2019 7:01 PM WSN:[id number]
[2019-03-24] MEDS ORDERED: PROPOFOL EMUL 10MG/ML 20 ML VL IV ONE (19:25)
[2019-03-24] MEDS ORDERED: LIDO/EPI 1% MDV 1:100,000 20ML INFIL ONE (21:24)
[2019-03-24] MEDS ORDERED: CLINDAMYCIN 150 MG CAP PO ONE (22:10)
[2019-03-24] MEDS ORDERED: ASPIRIN 81 MG CHEW PO ONE (22:10)
[2019-03-24] MEDS ORDERED: oxyCODON/ACET (*)5/325MG (CII) 1 TAB TAB PO ONE (22:35)
[2019-03-24] MEDS ORDERED: CLIN300C99 PO (22:41)
[2019-03-24 22:45] VITALS: BP 126/85
--- NOTE | 2019-03-24 23:20 | Miscellaneous Provider Note ---
Miscellaneous Provider Note Note Procedure Note dr. ruodlph valiente perianal abscess incision and drainage of perianal abscess. prep/drape. 1% lido with epi. 1 cm incision. blood and some pus returned. wound packed and dressed. no complications minimal ebl TALIA VALIENTE Mar 24, 2019 23:20
== END 2019-03-24 23:17 | disposition home or self-care (01) ==
LOC: ER 17:10
DX: K61.1 Rectal abscess (principal)
CPT/HCPCS: 46050; 72193; 85025; 96374; 96376; 99285; J2270; J2704; Q9967; 82040; 82247; 82310; 82374; 82435; 82565; 82947; 84075; 84132; 84155; 84295; 84450; 84460; 84520

== ENCOUNTER → 2019-03-24 | Outpatient (CLI) | payer BC ==
[2018-11-07 13:55] VITALS: BMI 20.2
[~2019-03-24] MED LIST changes: +CLIN300C99 PO
== END ==
LOC: AMB 16:38
PROVIDERS: ATTEND Nurse Practitioner
DX: K62.5 Hemorrhage of anus and rectum (principal)
CPT/HCPCS: A0425; A0429

== ENCOUNTER → 2019-04-15 | Outpatient (CLI) | payer BC ==
[2018-11-07 13:55] VITALS: BMI 20.2
[~2019-04-15] MED LIST changes: +CLIN300C99 PO
[2019-04-15 10:26] LABS: PLATELET COUNT, AUTOMATED 412 K/uL (150-450)
== END ==
LOC: LAB 10:04
PROVIDERS: ATTEND Nurse Practitioner Family
DX: K60.2 Anal fissure, unspecified (principal); G47.00 Insomnia, unspecified; D64.9 Anemia, unspecified; D50.9 Iron deficiency anemia, unspecified; K51.90 Ulcerative colitis, unspecified, without complications; F41.8 Other specified anxiety disorders
CPT/HCPCS: 36415; 82728; 85025

== ENCOUNTER 2019-04-30 12:33 | Emergency (ER) | payer BC ==
[2018-11-07 13:55] VITALS: Wt 54.7 kg
--- NOTE | 2019-04-30 12:39 | ER Report ---
History and Physical Time Seen By MD: 12:34 HPI/ROS CHIEF COMPLAINT: Perirectal abscess HISTORY OF PRESENT ILLNESS: Patient is a 33-year-old female here with complaints of reaccumulation of a perirectal abscess on the left gluteal cleft which is been present for the past several days and acutely worsening today. Patient does have a history significant for Crohn's currently on immunosuppression. She did have a recent history of a knee surgery and is currently not on her anticoagulation of eliquiz and Plavix. He will patient is currently not on antimicrobial therapy. Patient is afebrile, hemodynamically stable at time of evaluation. REVIEW OF SYSTEMS: Constitutional: No fever, no chills. Cardiovascular: No chest pain, no palpitations. Respiratory: No cough, no shortness of breath. Gastrointestinal: No abdominal pain, no vomiting. Genitourinary: No hematuria. Musculoskeletal: No back pain. Skin: Erythematous, fluctuant area on the left gluteal cleft Neurological: No headache. Allergies: Coded Allergies: amoxicillin (Verified Allergy, Unknown, 03/24/19) CDIFF tramadol (Verified Allergy, Unknown, 03/24/19) SEIZURES Home Meds Active Scripts Clindamycin Hcl (CLINDAMYCIN HCL) 300 Mg Capsule, 300 MG PO Q6H, #8 CAPSULE Prov:MAXINE PENN 03/24/19 Paroxetine Hcl (PAROXETINE HCL) 10 Mg Tablet, 10 MG PO QDAY, #30 Prov:ABELINO WEBSTER MD 01/28/19 Reported Medications Melatonin (MELATONIN) 3 Mg Tablet, 2 TAB PO QHS PRN for INSOMNIA 02/14/19 Diclofenac Sodium 1% Gel (VOLTAREN 1% GEL) 100 Gm Gel..gram., 3 G TOP Q6H PRN for PAIN 02/13/19 Nortriptyline Hcl (NORTRIPTYLINE HCL) 25 Mg Cap, 25 MG PO HS, CAP 02/11/19 Nortriptyline Hcl (NORTRIPTYLINE HCL) 10 Mg Cap, 10 MG PO HS, CAP 02/11/19 Dicyclomine Hcl (DICYCLOMINE HCL) 10 Mg Capsule, 20 MG PO TID, CAPSULE 01/25/19 Biotin (BIOTIN) 5 Mg Capsule, 5 MG PO QDAY, CAPSULE 11/07/18 Aspirin (ASPIR 81) 81 Mg Tablet.dr, 81 MG PO QDAY, TAB 11/06/18 Adalimumab (HUMIRA) 40 Mg/0.8 Ml Pen.ij.kit, 40 MG SQ qfriday 07/31/18 Discontinued Reported Medications Apixaban (ELIQUIS) 5 Mg Tablet, 5 MG PO BID 11/06/18 Clopidogrel Bisulfate (PLAVIX) 75 Mg Tablet, 1 TAB PO QDAY, TAB 11/06/18 Discontinued Scripts Hydrocodone Bit/Acetaminophen (NORCO 7.5-325 TABLET) 1 Each Tablet, 1 EACH PO Q8H PRN for PAIN, #10 TAB Prov:ZAINABTALIA P 02/21/19 Hydrocodone Bit/Acetaminophen (NORCO 7.5-325 TABLET) 1 Each Tablet, 1 EACH PO Q6H PRN for PAIN, #30 TAB Prov:TALIA LAMB P 02/14/19 Ciprofloxacin Hcl 500 Mg Tab (CIPRO 500 MG TAB) 500 Mg Tablet, 500 MG PO BID for 7 Days, #14 TAB Prov:TALIA LAMB P 02/14/19 Metronidazole (METRONIDAZOLE) 500 Mg Tablet, 500 MG PO TID for 7 Days, #21 TAB Prov:ZAINABTALIA P 02/14/19 Hx Smoking: No Smoking Status: Never Smoker Hx Substance Use Disorder: No Hx Alcohol Use: Yes Constitutional Vital Sign - Last 24 Hours 04/30/19 04/30/19 04/30/19 04/30/19 12:35 13:26 13:30 13:35 Temp 98.1 Pulse 96 109 110 Resp 16 19 11 B/P (MAP) 116/82 109/71 (84) 109/67 (81) Pulse Ox 98 95 94 O2 Delivery Room Air 04/30/19 04/30/19 04/30/19 04/30/19 13:40 13:45 13:50 13:55 Pulse 145 140 133 Resp 12 16 18 B/P (MAP) 113/77 (89) 123/81 (95) Pulse Ox 90 100 95 94 04/30/19 04/30/19 04/30/19 04/30/19 14:00 14:05 14:10 14:15 Pulse 130 128 127 124 Resp 8 13 17 13 B/P (MAP) 107/73 (84) 106/67 (80) Pulse Ox 94 93 92 93 Physical Exam General Appearance: The patient is alert, has no immediate need for airway protection and no signs of toxicity. No acute distress Eyes: Pupils equal and round no pallor or injection. ENT, Mouth: Mucous membranes are moist. Respiratory: There are no retractions, lungs are clear to auscultation. Cardiovascular: Regular rate and rhythm. Gastrointestinal: Abdomen is soft and non tender, no masses, bowel sounds normal. Neurological: No focal neurological deficits Skin: 3 cm fluctuant and erythematous area on the left gluteal cleft, tender on palpation Musculoskeletal: Neck is supple non tender. Extremities are nontender, nonswollen and have full range of motion. [ ] DIFFERENTIAL DIAGNOSIS: After history and physical exam differential diagnosis was considered for abscess, cellulitis, seroma Medical Decision Making ED Course/Re-evaluation ED Course Patient is a 33-year-old female with a history of Crohn's on immunosuppression here with complaints of a perirectal abscess in the left gluteal cleft. Patient was given ketamine for sedation, IV clindamycin for antimicrobial coverage as the patient is currently not on antibiotics. Patient was also given fentanyl for analgesia. Patient was given ketamine for procedural sedation and an I &D was performed, draining a small amount of purulent material which was superficial no surrounding cellulitic changes as identified on ultrasound. The superior abscess pocket was packed using iodoform gauze. Patient was given IV clindamycin for antimicrobial coverage, normal saline bolus. Scripts provided for outpatient clindamycin, Percocet. Patient has follow-up with gastroenterology. Close PCP follow-up recommended. Return precautions provided. Patient was hemodynamically stable throughout course and at time of discharge. Procedure Incision and drainage of a perianal abscess: 2 superficial small pockets of abscess were identified. Patient was sedated using 100 mg of ketamine, fentanyl for analgesia. Ultrasound was utilized to identify the pockets of abscess, the site was cleaned using chlorhexidine, the site was injected using 6 mL of 2% lidocaine with epinephrine for topical analgesia. The 2 sites were incised using an 11 blade scalpel. Superficial pockets of fluid collection which were purulent were expressed from the pockets. Surrounding areas were consistent with cellulitic changes as identified on ultrasound imaging with signs of c obblestoning. The superior abscess pocket was packed using iodoform gauze. Patient tolerated the procedure well. Sterile bandage was placed on the site. Decision to Disposition Date: Apr 30, 2019 Decision to Disposition Time: 14:35 Depart Departure Latest Vital Signs Vital Signs Date Time Temp Pulse Resp B/P (MAP) Pulse Ox O2 Delivery O2 Flow Rate FiO2 04/30/19 14:15 124 13 106/67 (80) 93 04/30/19 12:35 98.1 Room Air Impression: Primary Impression: Perianal abscess Condition: Improved Disposition: HOME OR SELF-CARE Referrals: LINDA [facility] [employer] [facility], [facility] (PCP) New Scripts Clindamycin Hcl (CLINDAMYCIN HCL) 300 Mg Capsule 300 MG PO TID for 10 Days, #30 CAPSULE Prov: LUCILA MESSINA DO 04/30/19 Oxycodone Hcl/Acetaminophen (PERCOCET 5-325 MG TABLET) 1 Each Tablet 1 TAB PO Q4H PRN for PAIN, #12 TAB 0 Refills Prov: LUCILA MESSINA DO 04/30/19 Patient Instructions: Abscess Incision and Drainage (DC) Additional Instructions: Please drink plenty of water. Two separate pockets of abscess were drained, one of which was packed using iodoform gauze. You were given a dose of IV clindamycin for treatment of infection. Please take clindamycin 1 tablet 3 times daily for 10 days. Please keep all scheduled appointments. Please return promptly if you develop worsening pain, fevers, abdominal pain, nausea, vomiting. LUCILA MESSINA DO Apr 30, 2019 12:39
[2019-04-30] MEDS ORDERED: NS(*) 0.9% 1000 ML BAG 1,000 ML IV ONE (13:00)
[2019-04-30] MEDS ORDERED: HYDROMORPHONE HCL 1 MG/ML SYRINGE IVP ONE (13:00)
[2019-04-30] MEDS ORDERED: KETAMINE HCL 500 MG/5 ML VIAL IVP ONE (13:00)
[2019-04-30] MEDS ORDERED: CLINDAMYCIN(*) 900 MG/NS 50 ML 50 ML IVPB ONE (13:00)
[2019-04-30] MEDS ORDERED: KETAMINE HCL 500 MG/5 ML VIAL ONE (13:33)
[2019-04-30] MEDS ORDERED: OXYC-865 PO (14:31)
[2019-04-30] MEDS ORDERED: CLIN300C99 PO (14:34)
[2019-04-30 15:00] VITALS: BP 114/77
== END 2019-04-30 15:05 | disposition home or self-care (01) ==
LOC: ER 12:44
DX: K61.1 Rectal abscess (principal)
CPT/HCPCS: 46050; 96361; 96365; 96375; 99285; J1170; J3490; J7030